=== PATIENT | female | born 1955 | race African-American/Black ===

== ENCOUNTER 2016-07-18 11:05 | Inpatient (IN) | payer OTHER ==
[2016-07-18 12:22] VITALS: BMI 19.7
--- NOTE | 2016-07-18 16:21 | HP ---
Admission ROS [facility] Chief Complaint: I WANT TO GO TO REHAB Allergies/Adverse Reactions: Allergies Allergy/AdvReac Type Severity Reaction Status Date / Time No Known Allergies Allergy Verified 07/18/16 13:37 History of Present Illness: 60 YEARS OLD FEMALE WITH LONG HISTORY OF ALCOHOL COCAINE DEPENDENCE, HAS HIV, HEPATITIS C TREATED, HYPERTENSION LEFT GROIN HERNIA X 5 YEARS, IS ADMITTED TO REHAB Exam Limitations: No Limitations - Ebola screening Have you traveled outside of the country in the last 21 days: No Have you had contact with anyone from an Ebola affected area: No Have you been sick,other than usual withdrawal symptoms: No Do you have a fever: No - Review of Systems Constitutional: Loss of Appetite EENT: reports: Dental Problems (DENTURE), Other (EYE GLASSES) Respiratory: reports: No Symptoms reported Cardiac: reports: No Symptoms Reported GI: reports: Poor Appetite : reports: No Symptoms Reported Musculoskeletal: reports: No Symptoms Reported Integumentary: reports: No Symptoms Reported Neuro: reports: Numbness (LEFT LEG RELATED TO HIV) Endocrine: reports: No Symptoms Reported Hematology: reports: No Symptoms Reported Psychiatric: reports: Judgement Intact, Mood/Affect Appropiate, Orientated x3 Other Systems: Reviewed and Negative Patient History - Patient Medical History Hx Anemia: Yes (TAKES MVI W/ IRON) Hx Asthma: No Hx Chronic Obstructive Pulmonary Disease (COPD): No Hx Cancer: No Hx Cardiac Disorders: Yes (HCM) Hx Congestive Heart Failure: No Hx Hypertension: Yes Hx Hypercholesterolemia: No Hx Pacemaker: No HX Cerebrovascular Accident: No Hx Seizures: No Hx Dementia: No Hx Diabetes: No Hx Gastrointestinal Disorders: No Hx Liver Disease: No Hx Genitourinary Disorders: No Hx Sexually Transmitted Disorders: Yes (HIV + since 1996) Hx Renal Disease (ESRD): No Hx Thyroid Disease: No Hx Human Immunodeficiency Virus (HIV): Yes (1996,AIDS) Hx Hepatitis C: Yes (COMPLETED HARVONI [place]) Hx Depression: No Hx Suicide Attempt: No Hx Bipolar Disorder: No Hx Schizophrenia: No - Patient Surgical History Past Surgical History: No Hx Neurologic Surgery: No Hx Cataract Extraction: No Hx Cardiac Surgery: No Hx Lung Surgery: No Hx Breast Surgery: No Hx Breast Biopsy: No Hx Abdominal Surgery: No Hx Appendectomy: No Hx Cholecystectomy: No Hx Genitourinary Surgery: No Hx Section: No Hx Orthopedic Surgery: No Hx Hysterectomy: No - PPD History Previous Implant?: Yes Documented Results: Negative w/proof Implanted On Prior [facility] Admission?: Yes Date: 03/11/15 Results: 0 mm PPD to be Administered?: Yes - Reproductive History Patient is a Female of Child Bearing Age (11 -55 yrs old): No Last Menstrual Period: 10/19/03 Patient : No - Smoking Cessation Smoking history: Former smoker Have you smoked in the past 12 months: No Cigars Per Day: 0 Hx Chewing Tobacco Use: No Initiated information on smoking cessation: No - Substance & Tx. History Hx Alcohol Use: Yes Hx Substance Use: Yes Substance Use Type: Alcohol, Cocaine Hx Substance Use Treatment: Yes - Substances Abused Alcohol Route: Oral Frequency: Daily Amount used: 1/2 [id number] Age of first use: 15 Date of Last Use: 07/11/16 Family Disease History - Family Disease History Family Disease History: Other: Father ( ALCOHOL ), Mother (htn ), Brother (murmur ) Admission Physical Exam S - Vital Signs Vital Signs: Vital Signs - 24 hr 07/18/16 12:20 Temperature 97.9 F Pulse Rate 68 Respiratory 18 Rate Blood Pressure 111/71 - Physical General Appearance: Yes: No Apparent Distress, Appropriately Dressed, Thin HEENTM: Yes: Hearing grossly Normal, Normal ENT Inspection, Normocephalic, Normal Voice Respiratory: Yes: Chest Non-Tender, Lungs Clear, Normal Breath Sounds, No Respiratory Distress, No Accessory Muscle Use Neck: Yes: Supple, Trachea in good position Breast: Yes: Breasts Symetrical Cardiology: Yes: Regular Rhythm, Regular Rate, S1, S2 Abdominal: Yes: Non Tender, Soft Genitourinary: Yes: Within Normal Limits Back: Yes: Normal Inspection Musculoskeletal: Yes: full range of Motion, Gait Steady Extremities: Yes: Normal Inspection, Normal Range of Motion, Non-Tender Neurological: Yes: Fully Oriented, Alert, Motor Strength 5/5, Normal Mood/Affect , Normal Response Integumentary: Yes: Normal Color, Warm Lymphatic: Yes: Within Normal Limits - Diagnostic (1) AIDS (acquired immune deficiency syndrome) Current Visit: Yes Status: Acute Comment: SINCE 1996 (2) Alcohol dependence with uncomplicated withdrawal Current Visit: Yes Status: Acute (3) HTN (hypertension) Current Visit: Yes Status: Acute Qualifiers: Hypertension type: essential hypertension Qualified Code(s): I10 - Essential (primary) hypertension (4) Hepatitis C antibody test positive Current Visit: Yes Status: Resolved Comment: TREATED (5) Left inguinal hernia Current Visit: Yes Status: Chronic Comment: X 5 YEARS (6) Hypertrophic cardiomyopathy Current Visit: Yes Status: Chronic Comment: ASPIRIN (7) Anemia Current Visit: Yes Status: Acute Qualifiers: Anemia type: iron deficiency Comment: LAB PENDING (8) GERD (gastroesophageal reflux disease) Current Visit: Yes Status: Acute Qualifiers: Esophagitis presence: without esophagitis Qualified Code(s): K21.9 - Gastro-esophageal reflux disease without esophagitis (9) Weight loss Current Visit: Yes Status: Acute Cleared for Admission [facility] - Detox or Rehab S Level of Care: Observation Bed Detox Regimen/Protocol: Not Applicable Claeared for Rehab Admission: Yes [facility] Breath Alcohol Content Breath Alcohol Content: 0 Urine Pregancy Test - Result Urine Test Results: Negative- NO Line Present Urine Drug Screen - Results Drug Screen Negative: No Urine Drug Screen Results: ARIADNA-Cocaine
[2016-07-18] MEDS ORDERED: IBUPROFEN 400 MG TABLET (FP) PO PRN (16:29)
[2016-07-18] MEDS ORDERED: MAGNESIUM CITRATE 300 ML BOTTLE PO PRN (16:29)
[2016-07-18] MEDS ORDERED: MAGNESIUM HYDROX 2400MG/30ML ORAL SUSPENSION 30 ML CUP PO PRN (16:29)
[2016-07-18] MEDS ORDERED: P-EPHED 60MG/TRIPROLIDI 2.5MG TABLET PO PRN (16:29)
[2016-07-18] MEDS ORDERED: LOPERAMIDE HCL 2 MG CAPSULE PO PRN (16:29)
[2016-07-18] MEDS ORDERED: ACETAMINOPHEN 325 MG TABLET (FP) PO PRN (16:29)
[2016-07-18] MEDS: traZODone HCL 50 MG TABLET (FP) PO SCH (21:43)
[2016-07-18] MEDS: THIAMINE HCL 100 MG TABLET (FP) PO SCH (21:43)
[2016-07-18] MEDS: RANITIDINE HCL 150 MG TABLET (FP) PO SCH (21:44)
[2016-07-18] MEDS: NEVIRAPINE 200 MG TABLET PO SCH (21:45)
[2016-07-18] MEDS: CALCIUM 500MG/VIT-D 200 UNITS COMBO TABLET (FP) PO SCH (21:45)
[2016-07-18] MEDS: lamiVUDine/ZIDOVUDINE 150/300 1 COMBO TABLET PO SCH (21:45)
[2016-07-19] MEDS ORDERED: PT OWN MED DRAWER 7, Y5N ONE ×2 (09:00→20:42)
[2016-07-19] MEDS ORDERED: MULTIVIT WITH IRON MINERALS PO SCH (10:00)
[2016-07-19] MEDS: CALCIUM 500MG/VIT-D 200 UNITS COMBO TABLET (FP) PO SCH ×2 (10:10→21:32)
[2016-07-19] MEDS: ASPIRIN 81 MG CHEWABLE TABLETS PO SCH (10:10)
[2016-07-19] MEDS: METOPROLOL SUCCINATE 100 MG TAB.SR.24H (FP) PO SCH (10:11)
[2016-07-19] MEDS: valACYclovir HCL 500 MG TABLET (FP) PO SCH (10:11)
[2016-07-19] MEDS: RANITIDINE HCL 150 MG TABLET (FP) PO SCH ×2 (10:11→21:32)
[2016-07-19] MEDS: PRENATAL VITAMINS W/ FOLIC ACID TABLET (FP) PO SCH (10:12)
[2016-07-19] MEDS: NEVIRAPINE 200 MG TABLET PO SCH ×2 (10:12→21:33)
[2016-07-19] MEDS: MAG HYDROX/AL HYDROX/SIMETH 30 ML UNIT-DOSE CUP PO PRN (10:14)
[2016-07-19 10:31] LABS: MCH 34.3 pg (25.7-33.7); MCHC 32.5 g/dl (32.0-36.0); MEAN CELL VOLUME 105.5 fl (80-96); MEAN PLT VOLUME 9.6 fl (7.5-11.1); PLATELET COUNT 170 K/MM3 (134-434); RDW 13.7 % (11.6-15.6); WHITE BLOOD COUNT 5.4 K/mm3 (4.0-10.0)
[2016-07-19] MEDS: lamiVUDine/ZIDOVUDINE 150/300 1 COMBO TABLET PO SCH ×2 (10:45→21:33)
[2016-07-19] MEDS: MENTHOL/PHENOL 1 EACH UD MM PRN ×2 (11:07→21:47)
[2016-07-19 11:09] LABS: ALBUMIN 4.3 g/dl (3.4-5.0); BILIRUBIN,TOTAL 0.6 mg/dL (0.2-1.0); CALCIUM 9.6 mg/dL (8.5-10.1); CREATININE 1.2 mg/dL (0.55-1.02); TOT PROT 8.3 g/dl (6.4-8.2)
[2016-07-19 11:24] LABS: PLATELET COMMENT2 NO CLOTTING DETECTED; PLATELET ESTIMATE ADEQUATE (NORMAL)
[2016-07-19 11:25] LABS: ANISOCYTOSIS 2+
[2016-07-19] MEDS: IBUPROFEN 600 MG TABLET (FP) PO PRN (12:55)
--- NOTE | 2016-07-19 18:24 | EKG ---
Test Reason : Blood Pressure : / mmHG Vent. Rate : 063 BPM Atrial Rate : 063 BPM P-R Int : 206 ms QRS Dur : 156 ms QT Int : 500 ms P-R-T Axes : 058 027 006 degrees QTc Int : 511 ms NORMAL SINUS RHYTHM POSSIBLE LEFT ATRIAL ENLARGEMENT LEFT VENTRICULAR HYPERTROPHY WITH QRS WIDENING AND REPOLARIZATION ABNORMALITY ABNORMAL ECG NO PREVIOUS ECGS AVAILABLE Confirmed by WILSON JULIAN MD ([id number]) on 07/19/2016 6:24:39 PM Referred By: Tonya Jacob Confirmed By:WILSON JULIAN MD
[2016-07-19] MEDS: THIAMINE HCL 100 MG TABLET (FP) PO SCH (21:31)
[2016-07-19] MEDS: traZODone HCL 50 MG TABLET (FP) PO SCH (22:41)
[2016-07-20] MEDS: MAG HYDROX/AL HYDROX/SIMETH 30 ML UNIT-DOSE CUP PO PRN (01:46)
[2016-07-20] MEDS: guaiFENesin/D-METHORPHAN HB 10 ML UNIT-DOSE CUPS PO PRN ×2 (07:50→22:59)
[2016-07-20] MEDS: ASPIRIN 81 MG CHEWABLE TABLETS PO SCH (10:19)
[2016-07-20] MEDS: lamiVUDine/ZIDOVUDINE 150/300 1 COMBO TABLET PO SCH ×2 (10:20→21:30)
[2016-07-20] MEDS: RANITIDINE HCL 150 MG TABLET (FP) PO SCH ×2 (10:20→21:29)
[2016-07-20] MEDS: NEVIRAPINE 200 MG TABLET PO SCH ×2 (10:20→21:29)
[2016-07-20] MEDS: valACYclovir HCL 500 MG TABLET (FP) PO SCH (10:20)
[2016-07-20] MEDS: CALCIUM 500MG/VIT-D 200 UNITS COMBO TABLET (FP) PO SCH ×2 (10:20→21:30)
[2016-07-20] MEDS: PRENATAL VITAMINS W/ FOLIC ACID TABLET (FP) PO SCH (10:20)
[2016-07-20] MEDS: METOPROLOL SUCCINATE 100 MG TAB.SR.24H (FP) PO SCH (10:21)
[2016-07-20] MEDS: MENTHOL/PHENOL 1 EACH UD MM PRN (10:23)
[2016-07-20 10:54] LABS: URINE APPEARANCE CLEAR; URINE BILIRUBIN NEGATIVE (NEGATIVE); URINE COLOR YELLOW; URINE GLUCOSE (UA) NEGATIVE (NEGATIVE); URINE KETONE NEGATIVE (NEGATIVE); URINE NITRITE NEGATIVE (NEGATIVE); URINE PROTEIN NEGATIVE (NEGATIVE); URINE UROBILINOGEN NEGATIVE E.U./dl (0.2-1.0)
[2016-07-20 11:05] LABS: URINE BLOOD 2+ (NEGATIVE); URINE LEUK ESTERASE 3+ (NEGATIVE)
[2016-07-20 11:06] LABS: URINE RBC 3 /hpf (0-3); URINE WBC 20 /hpf (3-5)
[2016-07-20] MEDS ORDERED: PT OWN MED DRAWER 7, Y5N ONE (20:09)
[2016-07-20] MEDS: THIAMINE HCL 100 MG TABLET (FP) PO SCH (21:29)
[2016-07-20] MEDS: traZODone HCL 50 MG TABLET (FP) PO SCH (22:55)
[2016-07-21] MEDS ORDERED: PT OWN MED DRAWER 7, Y5N ONE ×3 (08:53→23:08)
--- NOTE | 2016-07-21 10:13 | HP ---
Psychiatrist Admission - Data Date of interview: 07/21/16 Admission source: [facility] Identifying data: This is one of the multiple admissions to [address] [place] [address] [facility] for this 60 years old AA female mother of one vanessa, resides in supportive housing,on [employer] benefits. Medical History: Significant for HIV+,AIDS,Anemia,HTN,GERD,Hypertrophic cardiomyopathy,H/O L Ingvinal Hernia. Psychiatric History: Reports no psychiatric history except some sleeping difficulties,taking Trazodone once in a while with good response. Physical/Sexual Abuse/Trauma History: denies Vital Signs: Vital Signs - 24 hr 07/21/16 07/21/16 07/21/16 00:30 07:10 10:10 Temperature 97.1 F L Pulse Rate 54 L 68 Respiratory 16 18 Rate Blood Pressure 147/96 103/68 Allergies/Adverse Reactions: Allergies Allergy/AdvReac Type Severity Reaction Status Date / Time No Known Allergies Allergy Verified 07/18/16 13:37 Date of last physical exam: 07/18/16 Concur with the findings of this exam: Yes - Substance Abuse/Tx History Hx Alcohol Use: Yes (reports drinking since 12 yo ,3-6 packs daily) Hx Substance Use: Yes (smoking crack since 20 yo,$100-200 daily) Substance Use Type: Alcohol, Cocaine Hx Substance Use Treatment: Yes (longest absinence about 5 years) - Admission Criteria Previous failed treatment: Yes Poor recovery environment: Yes Comorbidities: Yes Lacks judgement: Yes Mental Status Exam - Mental Status Exam Alert and Oriented to: Time, Place, Person Cognitive Function: Grossly Intact Patient Appearance: Well Groomed Mood: Irritable Affect: Labile Patient Behavior: Restless, Impulsive Speech Pattern: Clear Voice Loudness: Normal Thought Process: Goal Oriented Thought Disorder: Not Present Hallucinations: Denies Suicidal Ideation: Denies Homicidal Ideation: Denies Insight/Judgement: Fair Sleep: Difficulty falling asleep Appetite: Fair Muscle strength/Tone: Normal Gait/Station: Normal Psychiatric Findings - Problem List ([place] 1, 2,3) (1) AIDS (acquired immune deficiency syndrome) Current Visit: Yes Status: Chronic Comment: SINCE 1996 (2) Alcohol dependence with uncomplicated withdrawal Current Visit: Yes Status: Chronic (3) Anemia Current Visit: Yes Status: Chronic Qualifiers: Anemia type: iron deficiency Comment: LAB PENDING (4) GERD (gastroesophageal reflux disease) Current Visit: Yes Status: Chronic Qualifiers: Esophagitis presence: without esophagitis Qualified Code(s): K21.9 - Gastro-esophageal reflux disease without esophagitis (5) HTN (hypertension) Current Visit: Yes Status: Chronic Qualifiers: Hypertension type: essential hypertension Qualified Code(s): I10 - Essential (primary) hypertension (6) Weight loss Current Visit: Yes Status: Chronic (7) Hypertrophic cardiomyopathy Current Visit: Yes Status: Chronic Comment: ASPIRIN (8) Left inguinal hernia Current Visit: Yes Status: Chronic Comment: X 5 YEARS - Initial Treatment Plan Initial Treatment Plan: Trazodone 50 mg po hs.Will monitor progress.
[2016-07-21] MEDS: ASPIRIN 81 MG CHEWABLE TABLETS PO SCH (10:22)
[2016-07-21] MEDS: valACYclovir HCL 500 MG TABLET (FP) PO SCH (10:22)
[2016-07-21] MEDS: NEVIRAPINE 200 MG TABLET PO SCH ×2 (10:22→21:32)
[2016-07-21] MEDS: lamiVUDine/ZIDOVUDINE 150/300 1 COMBO TABLET PO SCH ×2 (10:22→21:32)
[2016-07-21] MEDS: CALCIUM 500MG/VIT-D 200 UNITS COMBO TABLET (FP) PO SCH (10:22)
[2016-07-21] MEDS: PRENATAL VITAMINS W/ FOLIC ACID TABLET (FP) PO SCH (10:23)
[2016-07-21] MEDS: METOPROLOL SUCCINATE 100 MG TAB.SR.24H (FP) PO SCH (10:23)
[2016-07-21] MEDS: RANITIDINE HCL 150 MG TABLET (FP) PO SCH ×2 (10:23→21:31)
[2016-07-21] MEDS: guaiFENesin/D-METHORPHAN HB 10 ML UNIT-DOSE CUPS PO PRN (10:30)
[2016-07-21] MEDS ORDERED: NON-FORMULARY MED PO SCH (13:50)
[2016-07-21] MEDS ORDERED: METOPROLOL SUCCINATE 100 MG TAB.SR.24H (FP) PO SCH (14:07)
[2016-07-21] MEDS: MENTHOL/PHENOL 1 EACH UD MM PRN (15:11)
[2016-07-21] MEDS: THIAMINE HCL 100 MG TABLET (FP) PO SCH (21:31)
[2016-07-21] MEDS: traZODone HCL 50 MG TABLET (FP) PO SCH (21:31)
[2016-07-21] MEDS: CHOLECALCIFEROL PO SCH (21:32)
[2016-07-21] MEDS: CALCIUM PO SCH (21:32)
[2016-07-22] MEDS ORDERED: PT OWN MED DRAWER 7, Y5N ONE ×2 (08:45→22:46)
[2016-07-22] MEDS: MULTIVIT WITH IRON MINERALS PO SCH (10:12)
[2016-07-22] MEDS: valACYclovir HCL 1000 MG TABLET PO SCH (10:12)
[2016-07-22] MEDS: NEVIRAPINE 200 MG TABLET PO SCH ×2 (10:13→21:43)
[2016-07-22] MEDS: FOLIC ACID 1 MG TABLET (FP) PO SCH (10:13)
[2016-07-22] MEDS: METOPROLOL SUCCINATE 200 MG TAB.SR.24H PO SCH (10:13)
[2016-07-22] MEDS: CHOLECALCIFEROL PO SCH ×2 (10:13→21:43)
[2016-07-22] MEDS: CALCIUM PO SCH ×2 (10:13→21:43)
[2016-07-22] MEDS: lamiVUDine/ZIDOVUDINE 150/300 1 COMBO TABLET PO SCH ×2 (10:13→21:43)
[2016-07-22] MEDS: ASPIRIN COATED 81 MG TABLET.EC PO SCH (10:13)
[2016-07-22] MEDS: guaiFENesin/D-METHORPHAN HB 10 ML UNIT-DOSE CUPS PO PRN ×2 (10:14→22:43)
[2016-07-22] MEDS: RANITIDINE HCL 150 MG TABLET (FP) PO SCH ×2 (10:27→21:42)
[2016-07-22] MEDS: IBUPROFEN 600 MG TABLET (FP) PO PRN (16:48)
[2016-07-22] MEDS: traZODone HCL 50 MG TABLET (FP) PO SCH (21:42)
[2016-07-22] MEDS: THIAMINE HCL 100 MG TABLET (FP) PO SCH (21:42)
[2016-07-23] MEDS ORDERED: valACYclovir HCL 500 MG TABLET (FP) ONE (09:04)
[2016-07-23] MEDS ORDERED: PT OWN MED DRAWER 7, Y5N ONE (09:07)
[2016-07-23] MEDS: RANITIDINE HCL 150 MG TABLET (FP) PO SCH ×2 (10:18→21:37)
[2016-07-23] MEDS: FOLIC ACID 1 MG TABLET (FP) PO SCH (10:18)
[2016-07-23] MEDS: ASPIRIN COATED 81 MG TABLET.EC PO SCH (10:19)
[2016-07-23] MEDS: lamiVUDine/ZIDOVUDINE 150/300 1 COMBO TABLET PO SCH ×2 (10:20→21:38)
[2016-07-23] MEDS: METOPROLOL SUCCINATE 200 MG TAB.SR.24H PO SCH (10:20)
[2016-07-23] MEDS: MULTIVIT WITH IRON MINERALS PO SCH (10:20)
[2016-07-23] MEDS: NEVIRAPINE 200 MG TABLET PO SCH ×2 (10:20→21:37)
[2016-07-23] MEDS: valACYclovir HCL 1000 MG TABLET PO SCH (10:20)
[2016-07-23] MEDS: CHOLECALCIFEROL PO SCH ×2 (10:20→21:38)
[2016-07-23] MEDS: CALCIUM PO SCH ×2 (10:20→21:38)
[2016-07-23] MEDS: IBUPROFEN 600 MG TABLET (FP) PO PRN (15:23)
[2016-07-23] MEDS: THIAMINE HCL 100 MG TABLET (FP) PO SCH (21:37)
[2016-07-23] MEDS: traZODone HCL 50 MG TABLET (FP) PO SCH (21:38)
[2016-07-24] MEDS: MENTHOL/PHENOL 1 EACH UD MM PRN (02:07)
[2016-07-24] MEDS: guaiFENesin/D-METHORPHAN HB 10 ML UNIT-DOSE CUPS PO PRN ×2 (02:08→10:15)
[2016-07-24] MEDS: valACYclovir HCL 1000 MG TABLET PO SCH (10:13)
[2016-07-24] MEDS: CHOLECALCIFEROL PO SCH ×2 (10:13→21:38)
[2016-07-24] MEDS: RANITIDINE HCL 150 MG TABLET (FP) PO SCH ×2 (10:13→21:37)
[2016-07-24] MEDS: FOLIC ACID 1 MG TABLET (FP) PO SCH (10:13)
[2016-07-24] MEDS: lamiVUDine/ZIDOVUDINE 150/300 1 COMBO TABLET PO SCH ×2 (10:13→21:38)
[2016-07-24] MEDS: ASPIRIN COATED 81 MG TABLET.EC PO SCH (10:13)
[2016-07-24] MEDS: NEVIRAPINE 200 MG TABLET PO SCH ×2 (10:13→21:38)
[2016-07-24] MEDS: CALCIUM PO SCH ×2 (10:13→21:38)
[2016-07-24] MEDS: MULTIVIT WITH IRON MINERALS PO SCH (10:13)
[2016-07-24] MEDS: METOPROLOL SUCCINATE 200 MG TAB.SR.24H PO SCH (10:13)
[2016-07-24] MEDS ORDERED: PT OWN MED DRAWER 7, Y5N ONE ×2 (10:15→19:38)
[2016-07-24] MEDS: IBUPROFEN 600 MG TABLET (FP) PO PRN (16:26)
[2016-07-24] MEDS: THIAMINE HCL 100 MG TABLET (FP) PO SCH (21:37)
[2016-07-24] MEDS: traZODone HCL 50 MG TABLET (FP) PO SCH (21:37)
[2016-07-25] MEDS: RANITIDINE HCL 150 MG TABLET (FP) PO SCH ×2 (10:25→22:15)
[2016-07-25] MEDS: ASPIRIN COATED 81 MG TABLET.EC PO SCH (10:25)
[2016-07-25] MEDS: CHOLECALCIFEROL PO SCH ×2 (10:25→22:13)
[2016-07-25] MEDS: MULTIVIT WITH IRON MINERALS PO SCH (10:25)
[2016-07-25] MEDS: FOLIC ACID 1 MG TABLET (FP) PO SCH (10:25)
[2016-07-25] MEDS: valACYclovir HCL 1000 MG TABLET PO SCH (10:25)
[2016-07-25] MEDS: lamiVUDine/ZIDOVUDINE 150/300 1 COMBO TABLET PO SCH ×2 (10:25→22:14)
[2016-07-25] MEDS: CALCIUM PO SCH ×2 (10:25→22:13)
[2016-07-25] MEDS: NEVIRAPINE 200 MG TABLET PO SCH ×2 (10:26→22:13)
[2016-07-25] MEDS: METOPROLOL SUCCINATE 200 MG TAB.SR.24H PO SCH (10:26)
--- NOTE | 2016-07-25 14:36 | PN ---
[facility] Progress Note Note: coughing ,dry coughing,lung clear,vaginal discharge,will give monistat vaginal cream
[2016-07-25] MEDS ORDERED: PT OWN MED DRAWER 7, Y5N ONE ×3 (19:37→23:27)
[2016-07-25] MEDS: THIAMINE HCL 100 MG TABLET (FP) PO SCH (22:15)
[2016-07-25] MEDS: traZODone HCL 50 MG TABLET (FP) PO SCH (23:24)
[2016-07-25] MEDS: MICONAZOLE NITRATE 2% VAGINAL CREAM 45 GM TUBE VG SCH (23:25)
[2016-07-25] MEDS: diphenhydrAMINE HCL 50 MG CAPSULE PO PRN (23:42)
[2016-07-26] MEDS ORDERED: valACYclovir HCL 500 MG TABLET (FP) ONE (08:57)
[2016-07-26] MEDS ORDERED: PT OWN MED DRAWER 7, Y5N ONE ×4 (08:59→21:57)
[2016-07-26] MEDS ORDERED: METOPROLOL SUCCINATE 100 MG TAB.SR.24H (FP) PO ONE (09:16)
[2016-07-26] MEDS: METOPROLOL SUCCINATE 200 MG TAB.SR.24H PO SCH (10:22)
[2016-07-26] MEDS: lamiVUDine/ZIDOVUDINE 150/300 1 COMBO TABLET PO SCH ×2 (10:22→21:34)
[2016-07-26] MEDS: MULTIVIT WITH IRON MINERALS PO SCH (10:22)
[2016-07-26] MEDS: ASPIRIN COATED 81 MG TABLET.EC PO SCH (10:22)
[2016-07-26] MEDS: NEVIRAPINE 200 MG TABLET PO SCH ×2 (10:22→21:34)
[2016-07-26] MEDS: valACYclovir HCL 1000 MG TABLET PO SCH (10:22)
[2016-07-26] MEDS: RANITIDINE HCL 150 MG TABLET (FP) PO SCH ×2 (10:25→21:34)
[2016-07-26] MEDS: FOLIC ACID 1 MG TABLET (FP) PO SCH (10:25)
[2016-07-26] MEDS: CALCIUM PO SCH ×2 (10:26→21:34)
[2016-07-26] MEDS: CHOLECALCIFEROL PO SCH ×2 (10:26→21:34)
[2016-07-26] MEDS: MICONAZOLE NITRATE 2% VAGINAL CREAM 45 GM TUBE VG SCH (21:33)
[2016-07-26] MEDS: THIAMINE HCL 100 MG TABLET (FP) PO SCH (21:33)
[2016-07-26] MEDS: traZODone HCL 50 MG TABLET (FP) PO SCH (21:33)
[2016-07-26] MEDS: guaiFENesin/D-METHORPHAN HB 10 ML UNIT-DOSE CUPS PO PRN (23:02)
[2016-07-27] MEDS: diphenhydrAMINE HCL 50 MG CAPSULE PO PRN ×2 (00:26→22:55)
[2016-07-27] MEDS ORDERED: PT OWN MED DRAWER 7, Y5N ONE ×3 (08:36→23:49)
[2016-07-27] MEDS: valACYclovir HCL 1000 MG TABLET PO SCH (09:51)
[2016-07-27] MEDS: METOPROLOL SUCCINATE 200 MG TAB.SR.24H PO SCH (09:51)
[2016-07-27] MEDS: lamiVUDine/ZIDOVUDINE 150/300 1 COMBO TABLET PO SCH ×2 (09:51→21:43)
[2016-07-27] MEDS: ASPIRIN COATED 81 MG TABLET.EC PO SCH (09:51)
[2016-07-27] MEDS: NEVIRAPINE 200 MG TABLET PO SCH ×2 (09:51→21:42)
[2016-07-27] MEDS: MULTIVIT WITH IRON MINERALS PO SCH (09:52)
[2016-07-27] MEDS: RANITIDINE HCL 150 MG TABLET (FP) PO SCH ×2 (09:52→21:42)
[2016-07-27] MEDS: FOLIC ACID 1 MG TABLET (FP) PO SCH (09:52)
[2016-07-27] MEDS: CALCIUM PO SCH ×2 (09:53→21:42)
[2016-07-27] MEDS: CHOLECALCIFEROL PO SCH ×2 (09:53→21:42)
[2016-07-27] MEDS: THIAMINE HCL 100 MG TABLET (FP) PO SCH (21:42)
[2016-07-27] MEDS: MICONAZOLE NITRATE 2% VAGINAL CREAM 45 GM TUBE VG SCH (21:43)
[2016-07-27] MEDS: traZODone HCL 50 MG TABLET (FP) PO SCH (22:55)
[2016-07-28] MEDS: MULTIVIT WITH IRON MINERALS PO SCH (10:31)
[2016-07-28] MEDS: METOPROLOL SUCCINATE 200 MG TAB.SR.24H PO SCH (10:31)
[2016-07-28] MEDS: RANITIDINE HCL 150 MG TABLET (FP) PO SCH ×2 (10:31→22:44)
[2016-07-28] MEDS: FOLIC ACID 1 MG TABLET (FP) PO SCH (10:31)
[2016-07-28] MEDS: lamiVUDine/ZIDOVUDINE 150/300 1 COMBO TABLET PO SCH ×2 (10:31→21:51)
[2016-07-28] MEDS: NEVIRAPINE 200 MG TABLET PO SCH ×2 (10:31→22:44)
[2016-07-28] MEDS: ASPIRIN COATED 81 MG TABLET.EC PO SCH (10:31)
[2016-07-28] MEDS: valACYclovir HCL 1000 MG TABLET PO SCH (10:31)
[2016-07-28] MEDS: CALCIUM PO SCH ×2 (10:35→21:52)
[2016-07-28] MEDS: CHOLECALCIFEROL PO SCH ×2 (10:35→21:52)
[2016-07-28] MEDS ORDERED: PT OWN MED DRAWER 7, Y5N ONE (10:35)
[2016-07-28] MEDS: IBUPROFEN 600 MG TABLET (FP) PO PRN (14:56)
[2016-07-28] MEDS: traZODone HCL 50 MG TABLET (FP) PO SCH (21:51)
[2016-07-28] MEDS: MICONAZOLE NITRATE 2% VAGINAL CREAM 45 GM TUBE VG SCH (21:52)
[2016-07-28] MEDS: diphenhydrAMINE HCL 50 MG CAPSULE PO PRN (22:43)
[2016-07-28] MEDS: THIAMINE HCL 100 MG TABLET (FP) PO SCH (22:44)
[2016-07-29] MEDS: FOLIC ACID 1 MG TABLET (FP) PO SCH (10:32)
[2016-07-29] MEDS: RANITIDINE HCL 150 MG TABLET (FP) PO SCH ×2 (10:32→21:49)
[2016-07-29] MEDS: CHOLECALCIFEROL PO SCH ×2 (10:33→21:49)
[2016-07-29] MEDS: ASPIRIN COATED 81 MG TABLET.EC PO SCH (10:33)
[2016-07-29] MEDS: METOPROLOL SUCCINATE 200 MG TAB.SR.24H PO SCH (10:33)
[2016-07-29] MEDS: CALCIUM PO SCH ×2 (10:33→21:49)
[2016-07-29] MEDS: NEVIRAPINE 200 MG TABLET PO SCH ×2 (10:33→21:48)
[2016-07-29] MEDS: MULTIVIT WITH IRON MINERALS PO SCH (10:33)
[2016-07-29] MEDS: lamiVUDine/ZIDOVUDINE 150/300 1 COMBO TABLET PO SCH ×2 (10:33→21:48)
[2016-07-29] MEDS ORDERED: PT OWN MED DRAWER 7, Y5N ONE ×2 (10:48→20:12)
[2016-07-29] MEDS: HYDROCORTISONE 1% TOPICAL CREAM 30 GM TUBE TP SCH ×2 (17:41→21:49)
[2016-07-29] MEDS: MICONAZOLE NITRATE 2% VAGINAL CREAM 45 GM TUBE VG SCH (21:48)
[2016-07-29] MEDS: traZODone HCL 50 MG TABLET (FP) PO SCH (21:49)
[2016-07-29] MEDS: diphenhydrAMINE HCL 50 MG CAPSULE PO PRN (22:36)
[2016-07-30] MEDS ORDERED: PT OWN MED DRAWER 7, Y5N ONE ×2 (09:06→22:04)
[2016-07-30] MEDS: RANITIDINE HCL 150 MG TABLET (FP) PO SCH ×2 (10:37→22:05)
[2016-07-30] MEDS: HYDROCORTISONE 1% TOPICAL CREAM 30 GM TUBE TP SCH ×4 (10:37→22:06)
[2016-07-30] MEDS: MULTIVIT WITH IRON MINERALS PO SCH (10:37)
[2016-07-30] MEDS: METOPROLOL SUCCINATE 200 MG TAB.SR.24H PO SCH (10:37)
[2016-07-30] MEDS: ASPIRIN COATED 81 MG TABLET.EC PO SCH (10:37)
[2016-07-30] MEDS: CALCIUM PO SCH ×2 (10:37→22:02)
[2016-07-30] MEDS: CHOLECALCIFEROL PO SCH ×2 (10:37→22:02)
[2016-07-30] MEDS: FOLIC ACID 1 MG TABLET (FP) PO SCH (10:37)
[2016-07-30] MEDS: NEVIRAPINE 200 MG TABLET PO SCH ×2 (10:37→22:02)
[2016-07-30] MEDS: lamiVUDine/ZIDOVUDINE 150/300 1 COMBO TABLET PO SCH ×2 (10:37→22:06)
[2016-07-30] MEDS: MICONAZOLE NITRATE 2% VAGINAL CREAM 45 GM TUBE VG SCH (22:03)
[2016-07-30] MEDS: traZODone HCL 50 MG TABLET (FP) PO SCH (22:05)
[2016-07-30] MEDS: diphenhydrAMINE HCL 50 MG CAPSULE PO PRN (22:05)
[2016-07-31] MEDS: RANITIDINE HCL 150 MG TABLET (FP) PO SCH ×2 (10:50→21:56)
[2016-07-31] MEDS: lamiVUDine/ZIDOVUDINE 150/300 1 COMBO TABLET PO SCH ×2 (10:50→21:58)
[2016-07-31] MEDS: ASPIRIN COATED 81 MG TABLET.EC PO SCH (10:50)
[2016-07-31] MEDS: HYDROCORTISONE 1% TOPICAL CREAM 30 GM TUBE TP SCH ×4 (10:50→21:58)
[2016-07-31] MEDS: FOLIC ACID 1 MG TABLET (FP) PO SCH (10:50)
[2016-07-31] MEDS: CHOLECALCIFEROL PO SCH ×2 (10:51→21:56)
[2016-07-31] MEDS: METOPROLOL SUCCINATE 200 MG TAB.SR.24H PO SCH (10:51)
[2016-07-31] MEDS: NEVIRAPINE 200 MG TABLET PO SCH ×2 (10:51→21:56)
[2016-07-31] MEDS: MULTIVIT WITH IRON MINERALS PO SCH (10:51)
[2016-07-31] MEDS: CALCIUM PO SCH ×2 (10:51→21:56)
[2016-07-31] MEDS: MAG HYDROX/AL HYDROX/SIMETH 30 ML UNIT-DOSE CUP PO PRN (16:59)
[2016-07-31] MEDS: diphenhydrAMINE HCL 50 MG CAPSULE PO PRN (21:55)
[2016-07-31] MEDS: traZODone HCL 50 MG TABLET (FP) PO SCH (21:56)
[2016-07-31] MEDS: MICONAZOLE NITRATE 2% VAGINAL CREAM 45 GM TUBE VG SCH (21:57)
[2016-08-01] MEDS ORDERED: PT OWN MED DRAWER 7, Y5N ONE (08:44)
[2016-08-01] MEDS: FOLIC ACID 1 MG TABLET (FP) PO SCH (10:46)
[2016-08-01] MEDS: ASPIRIN COATED 81 MG TABLET.EC PO SCH (10:46)
[2016-08-01] MEDS: RANITIDINE HCL 150 MG TABLET (FP) PO SCH ×2 (10:46→21:52)
[2016-08-01] MEDS: MULTIVIT WITH IRON MINERALS PO SCH (10:46)
[2016-08-01] MEDS: NEVIRAPINE 200 MG TABLET PO SCH ×2 (10:46→21:54)
[2016-08-01] MEDS: lamiVUDine/ZIDOVUDINE 150/300 1 COMBO TABLET PO SCH ×2 (10:46→21:53)
[2016-08-01] MEDS: METOPROLOL SUCCINATE 200 MG TAB.SR.24H PO SCH (10:47)
[2016-08-01] MEDS: CALCIUM PO SCH ×2 (10:48→21:54)
[2016-08-01] MEDS: CHOLECALCIFEROL PO SCH ×2 (10:48→21:54)
[2016-08-01] MEDS: HYDROCORTISONE 1% TOPICAL CREAM 30 GM TUBE TP SCH ×4 (10:49→21:54)
[2016-08-01] MEDS: traZODone HCL 50 MG TABLET (FP) PO SCH (21:52)
[2016-08-01] MEDS: diphenhydrAMINE HCL 50 MG CAPSULE PO PRN (21:53)
[2016-08-02] MEDS ORDERED: PT OWN MED DRAWER 7, Y5N ONE ×3 (09:13→20:04)
[2016-08-02] MEDS: ASPIRIN COATED 81 MG TABLET.EC PO SCH (10:35)
[2016-08-02] MEDS: lamiVUDine/ZIDOVUDINE 150/300 1 COMBO TABLET PO SCH ×2 (10:35→21:43)
[2016-08-02] MEDS: CHOLECALCIFEROL PO SCH ×2 (10:35→21:43)
[2016-08-02] MEDS: CALCIUM PO SCH ×2 (10:35→21:43)
[2016-08-02] MEDS: FOLIC ACID 1 MG TABLET (FP) PO SCH (10:35)
[2016-08-02] MEDS: NEVIRAPINE 200 MG TABLET PO SCH ×2 (10:35→21:43)
[2016-08-02] MEDS: METOPROLOL SUCCINATE 200 MG TAB.SR.24H PO SCH (10:35)
[2016-08-02] MEDS: RANITIDINE HCL 150 MG TABLET (FP) PO SCH ×2 (10:35→21:43)
[2016-08-02] MEDS: MULTIVIT WITH IRON MINERALS PO SCH (10:35)
[2016-08-02] MEDS: HYDROCORTISONE 1% TOPICAL CREAM 30 GM TUBE TP SCH ×4 (10:36→21:45)
[2016-08-02] MEDS: traZODone HCL 50 MG TABLET (FP) PO SCH (21:43)
[2016-08-02] MEDS: diphenhydrAMINE HCL 50 MG CAPSULE PO PRN (21:44)
[2016-08-03] MEDS: MULTIVIT WITH IRON MINERALS PO SCH (10:20)
[2016-08-03] MEDS: CALCIUM PO SCH ×2 (10:20→21:48)
[2016-08-03] MEDS: CHOLECALCIFEROL PO SCH ×2 (10:20→21:48)
[2016-08-03] MEDS: METOPROLOL SUCCINATE 200 MG TAB.SR.24H PO SCH (10:21)
[2016-08-03] MEDS: lamiVUDine/ZIDOVUDINE 150/300 1 COMBO TABLET PO SCH ×2 (10:21→21:48)
[2016-08-03] MEDS: FOLIC ACID 1 MG TABLET (FP) PO SCH (10:21)
[2016-08-03] MEDS: NEVIRAPINE 200 MG TABLET PO SCH ×2 (10:21→21:48)
[2016-08-03] MEDS: RANITIDINE HCL 150 MG TABLET (FP) PO SCH ×2 (10:21→21:46)
[2016-08-03] MEDS: ASPIRIN COATED 81 MG TABLET.EC PO SCH (10:21)
[2016-08-03] MEDS: HYDROCORTISONE 1% TOPICAL CREAM 30 GM TUBE TP SCH ×4 (10:22→21:48)
[2016-08-03] MEDS: diphenhydrAMINE HCL 50 MG CAPSULE PO PRN (21:47)
[2016-08-03] MEDS: traZODone HCL 50 MG TABLET (FP) PO SCH (21:47)
[2016-08-04] MEDS ORDERED: PT OWN MED DRAWER 7, Y5N ONE ×3 (08:50→20:26)
[2016-08-04] MEDS: MULTIVIT WITH IRON MINERALS PO SCH (10:44)
[2016-08-04] MEDS: NEVIRAPINE 200 MG TABLET PO SCH ×2 (10:44→21:38)
[2016-08-04] MEDS: FOLIC ACID 1 MG TABLET (FP) PO SCH (10:44)
[2016-08-04] MEDS: HYDROCORTISONE 1% TOPICAL CREAM 30 GM TUBE TP SCH ×4 (10:44→21:38)
[2016-08-04] MEDS: RANITIDINE HCL 150 MG TABLET (FP) PO SCH ×2 (10:44→21:37)
[2016-08-04] MEDS: METOPROLOL SUCCINATE 200 MG TAB.SR.24H PO SCH (10:44)
[2016-08-04] MEDS: lamiVUDine/ZIDOVUDINE 150/300 1 COMBO TABLET PO SCH ×2 (10:44→21:38)
[2016-08-04] MEDS: ASPIRIN COATED 81 MG TABLET.EC PO SCH (10:44)
[2016-08-04] MEDS: CHOLECALCIFEROL PO SCH ×2 (10:47→21:38)
[2016-08-04] MEDS: CALCIUM PO SCH ×2 (10:47→21:38)
--- NOTE | 2016-08-04 11:50 | PN ---
[facility] Progress Note Note: Vaginal d/c with fishy odor Bacterial vaginosis P : flagyl bid
[2016-08-04] MEDS ORDERED: valACYclovir HCL 500 MG TABLET (FP) PO SCH (13:50)
[2016-08-04] MEDS: valACYclovir HCL 1000 MG TABLET PO SCH (14:54)
[2016-08-04] MEDS: metroNIDAZOLE 250 MG TABLET PO SCH ×2 (14:54→21:38)
[2016-08-04] MEDS: IBUPROFEN 600 MG TABLET (FP) PO PRN (16:30)
[2016-08-04] MEDS: traZODone HCL 50 MG TABLET (FP) PO SCH (21:37)
[2016-08-04] MEDS: diphenhydrAMINE HCL 50 MG CAPSULE PO PRN (21:39)
[2016-08-05] MEDS ORDERED: PT OWN MED DRAWER 7, Y5N ONE ×6 (08:25→19:25)
[2016-08-05] MEDS: metroNIDAZOLE 250 MG TABLET PO SCH ×2 (10:27→21:25)
[2016-08-05] MEDS: RANITIDINE HCL 150 MG TABLET (FP) PO SCH ×2 (10:27→21:25)
[2016-08-05] MEDS: ASPIRIN COATED 81 MG TABLET.EC PO SCH (10:27)
[2016-08-05] MEDS: FOLIC ACID 1 MG TABLET (FP) PO SCH (10:27)
[2016-08-05] MEDS: MULTIVIT WITH IRON MINERALS PO SCH (10:29)
[2016-08-05] MEDS: CALCIUM PO SCH ×2 (11:11→21:26)
[2016-08-05] MEDS: CHOLECALCIFEROL PO SCH ×2 (11:11→21:26)
[2016-08-05] MEDS: lamiVUDine/ZIDOVUDINE 150/300 1 COMBO TABLET PO SCH ×2 (11:11→21:25)
[2016-08-05] MEDS: valACYclovir HCL 1000 MG TABLET PO SCH ×3 (11:11→11:13)
[2016-08-05] MEDS: METOPROLOL SUCCINATE 200 MG TAB.SR.24H PO SCH (11:11)
[2016-08-05] MEDS: HYDROCORTISONE 1% TOPICAL CREAM 30 GM TUBE TP SCH ×4 (11:12→21:26)
[2016-08-05] MEDS: NEVIRAPINE 200 MG TABLET PO SCH ×2 (11:13→21:26)
[2016-08-05] MEDS: traZODone HCL 50 MG TABLET (FP) PO SCH (21:25)
[2016-08-05] MEDS: diphenhydrAMINE HCL 50 MG CAPSULE PO PRN (21:27)
[2016-08-06] MEDS ORDERED: PT OWN MED DRAWER 7, Y5N ONE ×5 (07:31→21:15)
[2016-08-06] MEDS: metroNIDAZOLE 250 MG TABLET PO SCH ×2 (10:35→22:46)
[2016-08-06] MEDS: FOLIC ACID 1 MG TABLET (FP) PO SCH (10:35)
[2016-08-06] MEDS: RANITIDINE HCL 150 MG TABLET (FP) PO SCH ×2 (10:35→22:46)
[2016-08-06] MEDS: CHOLECALCIFEROL PO SCH ×2 (10:36→22:53)
[2016-08-06] MEDS: CALCIUM PO SCH ×2 (10:36→22:53)
[2016-08-06] MEDS: METOPROLOL SUCCINATE 200 MG TAB.SR.24H PO SCH (10:36)
[2016-08-06] MEDS: ASPIRIN COATED 81 MG TABLET.EC PO SCH (10:36)
[2016-08-06] MEDS: lamiVUDine/ZIDOVUDINE 150/300 1 COMBO TABLET PO SCH ×2 (10:36→22:53)
[2016-08-06] MEDS: valACYclovir HCL 1000 MG TABLET PO SCH (10:37)
[2016-08-06] MEDS: MULTIVIT WITH IRON MINERALS PO SCH (10:37)
[2016-08-06] MEDS: HYDROCORTISONE 1% TOPICAL CREAM 30 GM TUBE TP SCH ×4 (10:37→22:53)
[2016-08-06] MEDS: NEVIRAPINE 200 MG TABLET PO SCH ×2 (10:37→22:49)
--- NOTE | 2016-08-06 14:58 | PN ---
[facility] Progress Note Note: C/O constipation P : Colace 100mg bid
[2016-08-06] MEDS: traZODone HCL 50 MG TABLET (FP) PO SCH (22:46)
[2016-08-06] MEDS: DOCUSATE SODIUM 100 MG CAPSULE (FP) PO SCH (22:47)
[2016-08-06] MEDS: diphenhydrAMINE HCL 50 MG CAPSULE PO PRN (22:51)
[2016-08-07] MEDS ORDERED: PT OWN MED DRAWER 7, Y5N ONE ×2 (08:33→21:47)
[2016-08-07] MEDS: METOPROLOL SUCCINATE 200 MG TAB.SR.24H PO SCH (10:49)
[2016-08-07] MEDS: CHOLECALCIFEROL PO SCH ×2 (10:49→21:48)
[2016-08-07] MEDS: lamiVUDine/ZIDOVUDINE 150/300 1 COMBO TABLET PO SCH ×2 (10:49→21:48)
[2016-08-07] MEDS: MULTIVIT WITH IRON MINERALS PO SCH (10:49)
[2016-08-07] MEDS: CALCIUM PO SCH ×2 (10:49→21:48)
[2016-08-07] MEDS: NEVIRAPINE 200 MG TABLET PO SCH ×2 (10:49→21:48)
[2016-08-07] MEDS: valACYclovir HCL 1000 MG TABLET PO SCH (10:49)
[2016-08-07] MEDS: RANITIDINE HCL 150 MG TABLET (FP) PO SCH ×2 (10:50→21:45)
[2016-08-07] MEDS: metroNIDAZOLE 250 MG TABLET PO SCH ×2 (10:50→21:45)
[2016-08-07] MEDS: HYDROCORTISONE 1% TOPICAL CREAM 30 GM TUBE TP SCH ×4 (10:50→21:48)
[2016-08-07] MEDS: FOLIC ACID 1 MG TABLET (FP) PO SCH (10:50)
[2016-08-07] MEDS: ASPIRIN COATED 81 MG TABLET.EC PO SCH (10:50)
[2016-08-07] MEDS: DOCUSATE SODIUM 100 MG CAPSULE (FP) PO SCH ×2 (10:50→21:45)
[2016-08-07] MEDS: traZODone HCL 50 MG TABLET (FP) PO SCH (21:45)
[2016-08-07] MEDS: diphenhydrAMINE HCL 50 MG CAPSULE PO PRN (21:46)
[2016-08-08] MEDS ORDERED: PT OWN MED DRAWER 7, Y5N ONE ×2 (08:34→19:53)
[2016-08-08] MEDS: FOLIC ACID 1 MG TABLET (FP) PO SCH (10:25)
[2016-08-08] MEDS: DOCUSATE SODIUM 100 MG CAPSULE (FP) PO SCH ×2 (10:25→21:58)
[2016-08-08] MEDS: metroNIDAZOLE 250 MG TABLET PO SCH ×2 (10:25→21:58)
[2016-08-08] MEDS: RANITIDINE HCL 150 MG TABLET (FP) PO SCH ×2 (10:25→21:58)
[2016-08-08] MEDS: METOPROLOL SUCCINATE 200 MG TAB.SR.24H PO SCH (10:26)
[2016-08-08] MEDS: MULTIVIT WITH IRON MINERALS PO SCH (10:26)
[2016-08-08] MEDS: ASPIRIN COATED 81 MG TABLET.EC PO SCH (10:26)
[2016-08-08] MEDS: CALCIUM PO SCH ×2 (10:26→22:53)
[2016-08-08] MEDS: lamiVUDine/ZIDOVUDINE 150/300 1 COMBO TABLET PO SCH ×2 (10:26→22:52)
[2016-08-08] MEDS: CHOLECALCIFEROL PO SCH ×2 (10:26→22:53)
[2016-08-08] MEDS: HYDROCORTISONE 1% TOPICAL CREAM 30 GM TUBE TP SCH ×4 (10:26→22:52)
[2016-08-08] MEDS: NEVIRAPINE 200 MG TABLET PO SCH ×2 (10:26→22:53)
[2016-08-08] MEDS: valACYclovir HCL 1000 MG TABLET PO SCH (10:26)
[2016-08-08] MEDS: diphenhydrAMINE HCL 50 MG CAPSULE PO PRN (21:58)
[2016-08-08] MEDS: traZODone HCL 50 MG TABLET (FP) PO SCH (21:58)
[2016-08-09] MEDS ORDERED: PT OWN MED DRAWER 7, Y5N ONE ×4 (09:01→21:56)
[2016-08-09] MEDS: metroNIDAZOLE 250 MG TABLET PO SCH ×2 (10:47→21:56)
[2016-08-09] MEDS: FOLIC ACID 1 MG TABLET (FP) PO SCH (10:47)
[2016-08-09] MEDS: MULTIVIT WITH IRON MINERALS PO SCH (10:47)
[2016-08-09] MEDS: DOCUSATE SODIUM 100 MG CAPSULE (FP) PO SCH ×2 (10:47→21:54)
[2016-08-09] MEDS: METOPROLOL SUCCINATE 200 MG TAB.SR.24H PO SCH (10:48)
[2016-08-09] MEDS: lamiVUDine/ZIDOVUDINE 150/300 1 COMBO TABLET PO SCH ×2 (10:48→21:55)
[2016-08-09] MEDS: CHOLECALCIFEROL PO SCH ×2 (10:48→21:54)
[2016-08-09] MEDS: ASPIRIN COATED 81 MG TABLET.EC PO SCH (10:48)
[2016-08-09] MEDS: valACYclovir HCL 1000 MG TABLET PO SCH (10:48)
[2016-08-09] MEDS: HYDROCORTISONE 1% TOPICAL CREAM 30 GM TUBE TP SCH ×4 (10:48→21:57)
[2016-08-09] MEDS: CALCIUM PO SCH ×2 (10:48→21:54)
[2016-08-09] MEDS: NEVIRAPINE 200 MG TABLET PO SCH ×2 (10:48→21:57)
[2016-08-09] MEDS: RANITIDINE HCL 150 MG TABLET (FP) PO SCH ×2 (10:49→21:54)
[2016-08-09] MEDS: diphenhydrAMINE HCL 50 MG CAPSULE PO PRN (21:54)
[2016-08-09] MEDS: traZODone HCL 50 MG TABLET (FP) PO SCH (21:54)
[2016-08-10] MEDS ORDERED: PT OWN MED DRAWER 7, Y5N ONE ×2 (08:41→11:20)
[2016-08-10] MEDS: lamiVUDine/ZIDOVUDINE 150/300 1 COMBO TABLET PO SCH ×2 (10:57→21:53)
[2016-08-10] MEDS: METOPROLOL SUCCINATE 200 MG TAB.SR.24H PO SCH (10:57)
[2016-08-10] MEDS: MULTIVIT WITH IRON MINERALS PO SCH (10:57)
[2016-08-10] MEDS: NEVIRAPINE 200 MG TABLET PO SCH ×2 (10:57→21:54)
[2016-08-10] MEDS: valACYclovir HCL 1000 MG TABLET PO SCH (10:57)
[2016-08-10] MEDS: ASPIRIN COATED 81 MG TABLET.EC PO SCH (10:57)
[2016-08-10] MEDS: CALCIUM PO SCH ×2 (10:58→21:54)
[2016-08-10] MEDS: FOLIC ACID 1 MG TABLET (FP) PO SCH (10:58)
[2016-08-10] MEDS: DOCUSATE SODIUM 100 MG CAPSULE (FP) PO SCH ×2 (10:58→21:52)
[2016-08-10] MEDS: CHOLECALCIFEROL PO SCH ×2 (10:58→21:54)
[2016-08-10] MEDS: RANITIDINE HCL 150 MG TABLET (FP) PO SCH ×2 (10:58→21:52)
[2016-08-10] MEDS: HYDROCORTISONE 1% TOPICAL CREAM 30 GM TUBE TP SCH ×4 (11:24→21:54)
[2016-08-10] MEDS: metroNIDAZOLE 250 MG TABLET PO SCH ×2 (11:24→21:53)
[2016-08-10] MEDS: traZODone HCL 50 MG TABLET (FP) PO SCH (21:52)
[2016-08-10] MEDS: diphenhydrAMINE HCL 50 MG CAPSULE PO PRN (21:53)
[2016-08-11] MEDS ORDERED: PT OWN MED DRAWER 7, Y5N ONE ×2 (08:52→19:35)
[2016-08-11] MEDS: metroNIDAZOLE 250 MG TABLET PO SCH (10:39)
[2016-08-11] MEDS: RANITIDINE HCL 150 MG TABLET (FP) PO SCH ×2 (10:39→21:49)
[2016-08-11] MEDS: FOLIC ACID 1 MG TABLET (FP) PO SCH (10:40)
[2016-08-11] MEDS: DOCUSATE SODIUM 100 MG CAPSULE (FP) PO SCH ×2 (10:40→21:50)
[2016-08-11] MEDS: CHOLECALCIFEROL PO SCH ×2 (10:40→21:50)
[2016-08-11] MEDS: METOPROLOL SUCCINATE 200 MG TAB.SR.24H PO SCH (10:40)
[2016-08-11] MEDS: NEVIRAPINE 200 MG TABLET PO SCH ×2 (10:40→21:50)
[2016-08-11] MEDS: ASPIRIN COATED 81 MG TABLET.EC PO SCH (10:40)
[2016-08-11] MEDS: valACYclovir HCL 1000 MG TABLET PO SCH (10:40)
[2016-08-11] MEDS: MULTIVIT WITH IRON MINERALS PO SCH (10:40)
[2016-08-11] MEDS: lamiVUDine/ZIDOVUDINE 150/300 1 COMBO TABLET PO SCH ×2 (10:40→21:50)
[2016-08-11] MEDS: CALCIUM PO SCH ×2 (10:40→21:50)
[2016-08-11] MEDS: HYDROCORTISONE 1% TOPICAL CREAM 30 GM TUBE TP SCH ×2 (10:41→14:05)
[2016-08-11] MEDS: traZODone HCL 50 MG TABLET (FP) PO SCH (21:49)
[2016-08-11] MEDS: diphenhydrAMINE HCL 50 MG CAPSULE PO PRN ×2 (21:50→23:46)
[2016-08-12] MEDS: DOCUSATE SODIUM 100 MG CAPSULE (FP) PO SCH ×2 (10:37→21:53)
[2016-08-12] MEDS: RANITIDINE HCL 150 MG TABLET (FP) PO SCH ×2 (10:37→21:53)
[2016-08-12] MEDS: CALCIUM PO SCH ×2 (10:38→21:55)
[2016-08-12] MEDS: METOPROLOL SUCCINATE 200 MG TAB.SR.24H PO SCH (10:38)
[2016-08-12] MEDS: ASPIRIN COATED 81 MG TABLET.EC PO SCH (10:38)
[2016-08-12] MEDS: CHOLECALCIFEROL PO SCH ×2 (10:38→21:55)
[2016-08-12] MEDS: FOLIC ACID 1 MG TABLET (FP) PO SCH (10:38)
[2016-08-12] MEDS: MULTIVIT WITH IRON MINERALS PO SCH (10:38)
[2016-08-12] MEDS: lamiVUDine/ZIDOVUDINE 150/300 1 COMBO TABLET PO SCH ×2 (10:38→21:55)
[2016-08-12] MEDS: NEVIRAPINE 200 MG TABLET PO SCH ×2 (10:38→21:55)
[2016-08-12] MEDS ORDERED: PT OWN MED DRAWER 7, Y5N ONE ×5 (10:49→20:40)
[2016-08-12] MEDS: traZODone HCL 50 MG TABLET (FP) PO SCH (21:53)
[2016-08-12] MEDS: diphenhydrAMINE HCL 50 MG CAPSULE PO PRN (21:54)
[2016-08-13] MEDS ORDERED: PT OWN MED DRAWER 7, Y5N ONE ×4 (08:18→11:31)
[2016-08-13] MEDS: CALCIUM PO SCH ×2 (11:00→21:54)
[2016-08-13] MEDS: lamiVUDine/ZIDOVUDINE 150/300 1 COMBO TABLET PO SCH ×2 (11:00→21:54)
[2016-08-13] MEDS: CHOLECALCIFEROL PO SCH ×2 (11:00→21:54)
[2016-08-13] MEDS: FOLIC ACID 1 MG TABLET (FP) PO SCH (11:01)
[2016-08-13] MEDS: DOCUSATE SODIUM 100 MG CAPSULE (FP) PO SCH ×2 (11:01→21:53)
[2016-08-13] MEDS: RANITIDINE HCL 150 MG TABLET (FP) PO SCH ×2 (11:01→21:53)
[2016-08-13] MEDS: ASPIRIN COATED 81 MG TABLET.EC PO SCH (11:02)
[2016-08-13] MEDS: MULTIVIT WITH IRON MINERALS PO SCH (11:03)
[2016-08-13] MEDS: NEVIRAPINE 200 MG TABLET PO SCH ×2 (11:05→21:54)
[2016-08-13] MEDS: METOPROLOL SUCCINATE 200 MG TAB.SR.24H PO SCH (11:06)
[2016-08-13] MEDS: traZODone HCL 50 MG TABLET (FP) PO SCH (21:53)
[2016-08-13] MEDS: diphenhydrAMINE HCL 50 MG CAPSULE PO PRN (21:54)
[2016-08-14] MEDS: MULTIVIT WITH IRON MINERALS PO SCH (10:50)
[2016-08-14] MEDS: CALCIUM PO SCH ×2 (10:50→21:39)
[2016-08-14] MEDS: lamiVUDine/ZIDOVUDINE 150/300 1 COMBO TABLET PO SCH ×2 (10:50→21:39)
[2016-08-14] MEDS: RANITIDINE HCL 150 MG TABLET (FP) PO SCH ×2 (10:50→21:38)
[2016-08-14] MEDS: FOLIC ACID 1 MG TABLET (FP) PO SCH (10:50)
[2016-08-14] MEDS: DOCUSATE SODIUM 100 MG CAPSULE (FP) PO SCH ×2 (10:50→21:38)
[2016-08-14] MEDS: CHOLECALCIFEROL PO SCH ×2 (10:50→21:39)
[2016-08-14] MEDS: ASPIRIN COATED 81 MG TABLET.EC PO SCH (10:51)
[2016-08-14] MEDS: METOPROLOL SUCCINATE 200 MG TAB.SR.24H PO SCH (10:51)
[2016-08-14] MEDS: NEVIRAPINE 200 MG TABLET PO SCH ×2 (10:51→21:39)
[2016-08-14] MEDS: traZODone HCL 50 MG TABLET (FP) PO SCH (21:38)
[2016-08-14] MEDS: diphenhydrAMINE HCL 50 MG CAPSULE PO PRN (21:39)
[2016-08-15 07:43] VITALS: TEMP 98
[2016-08-15] MEDS: FOLIC ACID 1 MG TABLET (FP) PO SCH (09:02)
[2016-08-15] MEDS: CHOLECALCIFEROL PO SCH (09:02)
[2016-08-15] MEDS: DOCUSATE SODIUM 100 MG CAPSULE (FP) PO SCH (09:02)
[2016-08-15] MEDS: RANITIDINE HCL 150 MG TABLET (FP) PO SCH (09:02)
[2016-08-15] MEDS: ASPIRIN COATED 81 MG TABLET.EC PO SCH (09:02)
[2016-08-15] MEDS: lamiVUDine/ZIDOVUDINE 150/300 1 COMBO TABLET PO SCH (09:02)
[2016-08-15] MEDS: MULTIVIT WITH IRON MINERALS PO SCH (09:02)
[2016-08-15] MEDS: METOPROLOL SUCCINATE 200 MG TAB.SR.24H PO SCH (09:02)
[2016-08-15] MEDS: NEVIRAPINE 200 MG TABLET PO SCH (09:02)
[2016-08-15] MEDS: CALCIUM PO SCH (09:02)
[2016-08-15 09:33] VITALS: BP 160/100; PULSE 57
--- NOTE | 2016-08-15 16:58 | PN ---
Psychiatric Progress Note Vital Signs: Vital Signs Period Temp Pulse Resp BP Sys/Cuevas Pulse Ox Last 24 Hr 98 F 47-57 16-18 128-160/86-100 Date of Session: 08/15/16 Chief Complaint:: Discharge visit HPI: Patient addressed Alcohol,Cocaine dependence comorbid with Substance induced sleep disorder.. ROS: Significant for HIV+,AIDS,Anemia,GERD, Current Side Effect: No Lab tests ordered: No Lab tests reviewed: Yes Provider note:: Patient completed this program today.She has met her treatment goals and will continue to address her issues on outpatient basis .Patient continues to find that Trazodone 50 mg po hs help to cope with sleeping difficulties.Script for 30 days provided. Supportive therapy provided., focusing on coping skills,support system utilization to maintain recovery. Patient is stable for discharge today. Total face to face time:: 30 Mental Status Exam - Mental Status Exam Alert and Oriented to: Time, Place, Person Cognitive Function: Grossly Intact Patient Appearance: Well Groomed Mood: Euthymic Affect: Mood Congruent Patient Behavior: Cooperative Speech Pattern: Clear Voice Loudness: Normal Thought Process: Goal Oriented Thought Disorder: Not Present Hallucinations: Denies Suicidal Ideation: Denies Homicidal Ideation: Denies Insight/Judgement: Fair Sleep: Fair Muscle strength/Tone: Normal Gait/Station: Normal Psychiatric Treatment Plan - Problem List (1) AIDS (acquired immune deficiency syndrome) Comment: SINCE 1996 (3) Anemia Qualifiers: Anemia type: iron deficiency Comment: LAB PENDING (4) GERD (gastroesophageal reflux disease) Qualifiers: Esophagitis presence: without esophagitis Qualified Code(s): K21.9 - Gastro-esophageal reflux disease without esophagitis (5) HTN (hypertension) Qualifiers: Hypertension type: essential hypertension Qualified Code(s): I10 - Essential (primary) hypertension (7) Hypertrophic cardiomyopathy Comment: ASPIRIN (8) Left inguinal hernia Comment: X 5 YEARS
== END 2016-08-15 10:00 | disposition home or self-care (01) | DRG 772 ==
LOC: YASAS 11:05 → Y3E 12:09
PROVIDERS: ADMIT Psychiatry & Neurology Psychiatry; ATTEND Psychiatry & Neurology Psychiatry
PROC: HZ42ZZZ Group Counseling for Substance Abuse Treatment, Cognitive-Behavioral (ICD-10-PCS; principal; 2016-08-15)
DX: F10.230 Alcohol dependence with withdrawal, uncomplicated (principal); B20 Human immunodeficiency virus [HIV] disease; I10 Essential (primary) hypertension; D50.8 Other iron deficiency anemias; K21.9 Gastro-esophageal reflux disease without esophagitis; I42.2 Other hypertrophic cardiomyopathy; K40.90 Unilateral inguinal hernia, without obstruction or gangrene, not specified as recurrent; R63.4 Abnormal weight loss; Z68.1 Body mass index [BMI] 19.9 or less, adult
CPT/HCPCS: 36415; 71010-TC; 80053; 81003; 81015; 85027; 86593; 93005; 93010

== ENCOUNTER 2017-03-13 11:53 | Inpatient (IN) | payer OTHER ==
[2017-03-13 12:06] VITALS: BMI 18.8
--- NOTE | 2017-03-13 15:53 | HP ---
Admission ROS [facility] Chief Complaint: requesting rehab for crack cocaien and alcohol use disorder Allergies/Adverse Reactions: Allergies Allergy/AdvReac Type Severity Reaction Status Date / Time No Known Allergies Allergy Verified 03/13/17 12:32 History of Present Illness: 61 yo f with h/o repeated admissions to rehab for crack cocaine and alcohol use disorder, deneis brannon when she does not drink no h/o seizures , no DTs. PMHX HIV+ /AIDS on meds, has them with her, HCV cleared with treatment, Hypertrophic cardiomyopathy, HTN on meds, no chest pain no palpitations, has SOBOE. has left inguinal hernia which causes discomfort on occasion Exam Limitations: No Limitations - Ebola screening Have you traveled outside of the country in the last 21 days: No Have you had contact with anyone from an Ebola affected area: No Have you been sick,other than usual withdrawal symptoms: No Do you have a fever: No - Review of Systems Constitutional: No Symptoms Reported EENT: reports: No Symptoms Reported Respiratory: reports: SOB with Exertion Cardiac: reports: No Symptoms Reported GI: reports: No Symptoms Reported : reports: No Symptoms Reported Musculoskeletal: reports: No Symptoms Reported Integumentary: reports: No Symptoms Reported Neuro: reports: No Symptoms reported Endocrine: reports: No Symptoms Reported Hematology: reports: No Symptoms Reported Psychiatric: reports: No Sypmtoms Reported Other Systems: Reviewed and Negative Patient History - Patient Medical History Hx Anemia: No Hx Asthma: No Hx Chronic Obstructive Pulmonary Disease (COPD): No Hx Cancer: No Hx Cardiac Disorders: Yes (hypertrophic cardiomyopathy) Hx Congestive Heart Failure: No Hx Hypertension: Yes (ON MEDICATION) Hx Hypercholesterolemia: No Hx Pacemaker: No HX Cerebrovascular Accident: No Hx Seizures: No Hx Dementia: No Hx Diabetes: No Hx Gastrointestinal Disorders: No Hx Liver Disease: No Hx Genitourinary Disorders: No Hx Sexually Transmitted Disorders: Yes (HIV INFECTION on HAART) Hx Renal Disease (ESRD): No Hx Thyroid Disease: No Hx Human Immunodeficiency Virus (HIV): Yes (1996,AIDS) Hx Hepatitis C: Yes (COMPLETED [place]VON[place]) Hx Depression: No Hx Suicide Attempt: No (no SI) Hx Bipolar Disorder: No Hx Schizophrenia: No - Patient Surgical History Past Surgical History: No Hx Neurologic Surgery: No Hx Cataract Extraction: No Hx Cardiac Surgery: No Hx Lung Surgery: No Hx Breast Surgery: No Hx Breast Biopsy: No Hx Abdominal Surgery: No Hx Appendectomy: No Hx Cholecystectomy: No Hx Genitourinary Surgery: No Hx Section: No Hx Orthopedic Surgery: No Hx Hysterectomy: No Anesthesia Reaction: No - PPD History Previous Implant?: Yes Documented Results: Negative w/o proof Date: 07/20/16 Results: 0 mm PPD to be Administered?: No - Reproductive History Patient is a Female of Child Bearing Age (11 -55 yrs old): No Last Menstrual Period: 10/19/03 Patient : No - Smoking Cessation Smoking history: Former smoker Have you smoked in the past 12 months: No Aproximately how many cigarettes per day: 6 Cigars Per Day: 0 Hx Chewing Tobacco Use: No Initiated information on smoking cessation: Yes 'Breaking Loose' booklet given: 03/13/17 - Substance & Tx. History Hx Alcohol Use: Yes Hx Substance Use: Yes Substance Use Type: Alcohol, Cocaine Hx Substance Use Treatment: Yes [place] [place] - Substances Abused Alcohol Route: Oral Frequency: 1-2 times per week Amount used: 3 12 OZ CANS Age of first use: 15 Date of Last Use: 03/13/17 Cocaine Route: Smoking Frequency: 3-6 times per week Amount used: $150 Age of first use: 19 Date of Last Use: 03/12/17 Family Disease History - Family Disease History Family Disease History: Other: Father ( ALCOHOL ), Mother (htn ), Brother (murmur ) Admission Physical Exam S - Vital Signs Vital Signs: Vital Signs - 24 hr 03/13/17 12:03 Temperature 97.8 F Pulse Rate 72 Respiratory 18 Rate Blood Pressure 124/82 - Physical General Appearance: Yes: Within Normal Limits, No Apparent Distress, Nourished, Appropriately Dressed, Thin HEENTM: Yes: Within Normal Limits, EOMI, Hearing grossly Normal, Normal ENT Inspection, Normocephalic, Normal Voice, NAHED, Pharynx Normal Respiratory: Yes: Within Normal Limits, Chest Non-Tender, Lungs Clear, Normal Breath Sounds, No Respiratory Distress, No Accessory Muscle Use Neck: Yes: Within Normal Limits, No masses,lesions,Nodules, Supple, Trachea in good position Breast: Yes: Breast Exam Deferred Cardiology: Yes: Within Normal Limits, Regular Rhythm, Regular Rate, S1, S2 Abdominal: Yes: Within Normal Limits, Normal Bowel Sounds, Non Tender, Flat, Soft Genitourinary: Yes: Within Normal Limits Back: Yes: Within Normal Limits Musculoskeletal: Yes: Within Normal Limits, full range of Motion, Gait Steady, Pelvis Stable Extremities: Yes: Within Normal Limits, Normal Capillary Refill, Normal Inspection, Normal Range of Motion, Non-Tender Neurological: Yes: underwriting technician II-XII NML intact, Fully Oriented, Alert, Motor Strength 5/5, Normal Response, Depressed Affect Integumentary: Yes: Within Normal Limits, Normal Color, Dry, Warm Lymphatic: Yes: Within Normal Limits - Diagnostic (1) AIDS (acquired immune deficiency syndrome) Current Visit: No Status: Chronic Comment: SINCE 1996 (2) Alcohol dependence Current Visit: No Status: Chronic Qualifiers: Substance use status: uncomplicated Qualified Code(s): F10.20 - Alcohol dependence, uncomplicated Comment: . (3) Anemia Current Visit: No Status: Chronic Qualifiers: Anemia type: iron deficiency Comment: LAB PENDING (4) Cardiomyopathy, hypertrophic Current Visit: No Status: Chronic (5) Cocaine dependence Current Visit: No Status: Chronic Comment: . (6) GERD (gastroesophageal reflux disease) Current Visit: No Status: Chronic Qualifiers: Esophagitis presence: without esophagitis Qualified Code(s): K21.9 - Gastro -esophageal reflux disease without esophagitis (7) HIV (human immunodeficiency virus infection) Current Visit: No Status: Chronic Comment: . (8) HTN (hypertension) Current Visit: No Status: Chronic Qualifiers: Hypertension type: essential hypertension Qualified Code(s): I10 - Essential (primary) hypertension (9) Hypertrophic cardiomyopathy Current Visit: No Status: Chronic Comment: ASPIRIN (10) Left inguinal hernia Current Visit: No Status: Chronic Comment: X 5 YEARS (11) Weight loss Current Visit: No Status: Chronic Cleared for Admission [facility] - Detox or Rehab Claeared for Rehab Admission: Yes [facility] Breath Alcohol Content Breath Alcohol Content: 0.065 Urine Pregancy Test - Result Urine Test Results: Negative- NO Line Present Urine Drug Screen - Results Drug Screen Negative: No Urine Drug Screen Results: ARIADNA-Cocaine Inpatient Rehab Admission - Initial Determination Are CD services needed?: Yes Free of communicable disease: Yes Not in need of hospitalization: Yes - Rehab Admission Criteria Previous failed treatment: Yes Patient is meeting Inpatient Rehab admission criteria:: Yes
[2017-03-13] MEDS ORDERED: MAGNESIUM CITRATE 300 ML BOTTLE PO PRN (15:54)
[2017-03-13] MEDS ORDERED: MAGNESIUM HYDROX 2400MG/30ML ORAL SUSPENSION 30 ML CUP PO PRN (15:54)
[2017-03-13] MEDS ORDERED: P-EPHED 60MG/TRIPROLIDI 2.5MG TABLET PO PRN (15:54)
[2017-03-13] MEDS ORDERED: LOPERAMIDE HCL 2 MG CAPSULE PO PRN (15:54)
[2017-03-13] MEDS ORDERED: ACETAMINOPHEN 325 MG TABLET (FP) PO PRN (15:54)
[2017-03-13 20:53] LABS: URINE APPEARANCE CLEAR; URINE BILIRUBIN NEGATIVE (NEGATIVE); URINE BLOOD NEGATIVE (NEGATIVE); URINE COLOR STRAW; URINE GLUCOSE (UA) NEGATIVE (NEGATIVE); URINE KETONE NEGATIVE (NEGATIVE); URINE NITRITE NEGATIVE (NEGATIVE); URINE PROTEIN NEGATIVE (NEGATIVE); URINE UROBILINOGEN NEGATIVE mg/dL (0.2-1.0)
[2017-03-13] MEDS: THIAMINE HCL 100 MG TABLET (FP) PO SCH (21:33)
[2017-03-13] MEDS: IBUPROFEN 400 MG TABLET (FP) PO PRN (21:33)
[2017-03-13] MEDS: NEVIRAPINE 200 MG TABLET PO SCH (21:37)
[2017-03-13] MEDS: CALCIUM 500MG/VIT-D 200 UNITS COMBO TABLET (FP) PO SCH (21:37)
[2017-03-13] MEDS ORDERED: VITAMIN D PO SCH (22:00)
[2017-03-13] MEDS ORDERED: lamiVUDine/ZIDOVUDINE 150/300 1 COMBO TABLET PO SCH (22:00)
[2017-03-13] MEDS ORDERED: CALCIUM CARBONATE PO SCH (22:00)
[2017-03-13] MEDS: traZODone HCL 50 MG TABLET (FP) PO SCH (23:03)
[2017-03-13] MEDS: hydrOXYzine PAMOATE 50 MG CAPSULE (FP) PO PRN (23:22)
[2017-03-14] MEDS: PRENATAL VITAMINS W/ FOLIC ACID TABLET (FP) PO SCH (09:54)
[2017-03-14] MEDS: METOPROLOL SUCCINATE 100 MG TAB.SR.24H (FP) PO SCH (09:54)
[2017-03-14] MEDS: NEVIRAPINE 200 MG TABLET PO SCH ×2 (09:54→21:29)
[2017-03-14] MEDS: CALCIUM 500MG/VIT-D 200 UNITS COMBO TABLET (FP) PO SCH ×2 (09:54→21:29)
[2017-03-14] MEDS: ASPIRIN 81 MG CHEWABLE TABLETS PO SCH (09:54)
[2017-03-14] MEDS ORDERED: MULTIVIT WITH IRON MINERALS PO SCH (10:00)
[2017-03-14 10:34] LABS: MEAN PLT VOLUME 9.2 fl (7.5-11.1); WHITE BLOOD COUNT 4.8 K/mm3 (4.0-10.0)
[2017-03-14 10:36] LABS: MCH 33.7 pg (25.7-33.7); MCHC 32.1 g/dl (32.0-36.0); MEAN CELL VOLUME 104.9 fl (80-96); PLATELET COUNT 179 K/MM3 (134-434); RDW 14.1 % (11.6-15.6)
[2017-03-14] MEDS: MAG HYDROX/AL HYDROX/SIMETH 30 ML UNIT-DOSE CUP PO PRN ×2 (10:36→23:09)
[2017-03-14 10:54] LABS: ALBUMIN 4.1 g/dl (3.4-5.0); ANION GAP 7 (8-16); CALCIUM 9.3 mg/dL (8.5-10.1); CO2 28 mmol/L (21-32); GLUCOSE,RANDOM 116 mg/dL (74-106); SGOT/AST 43 U/L (15-37); SGPT/ALT 42 U/L (12-78)
[2017-03-14 10:56] LABS: ALK PHOS 100 U/L (45-117); BILIRUBIN,TOTAL 0.3 mg/dL (0.2-1.0); CREATININE 1.2 mg/dL (0.55-1.02); TOT PROT 7.7 g/dl (6.4-8.2)
[2017-03-14] MEDS: lamiVUDine/ZIDOVUDINE 150/300 1 COMBO TABLET PO SCH ×2 (12:38→21:29)
[2017-03-14 16:07] LABS: URINE LEUK ESTERASE Negative (NEGATIVE)
[2017-03-14] MEDS: traZODone HCL 50 MG TABLET (FP) PO SCH (21:29)
[2017-03-14] MEDS: THIAMINE HCL 100 MG TABLET (FP) PO SCH (21:29)
[2017-03-14] MEDS: IBUPROFEN 400 MG TABLET (FP) PO PRN (21:30)
[2017-03-15] MEDS: ASPIRIN 81 MG CHEWABLE TABLETS PO SCH (09:41)
[2017-03-15] MEDS: METOPROLOL SUCCINATE 100 MG TAB.SR.24H (FP) PO SCH (09:41)
[2017-03-15] MEDS: PRENATAL VITAMINS W/ FOLIC ACID TABLET (FP) PO SCH (09:42)
[2017-03-15] MEDS: NEVIRAPINE 200 MG TABLET PO SCH ×2 (09:42→21:37)
[2017-03-15] MEDS: lamiVUDine/ZIDOVUDINE 150/300 1 COMBO TABLET PO SCH ×2 (09:42→21:37)
[2017-03-15] MEDS: CALCIUM 500MG/VIT-D 200 UNITS COMBO TABLET (FP) PO SCH ×2 (09:42→21:37)
[2017-03-15] MEDS: IBUPROFEN 400 MG TABLET (FP) PO PRN ×2 (09:43→21:38)
[2017-03-15] MEDS: MENTHOL/PHENOL 1 EACH UD MM PRN ×2 (13:07→23:45)
[2017-03-15] MEDS: traZODone HCL 50 MG TABLET (FP) PO SCH (21:36)
[2017-03-15] MEDS: THIAMINE HCL 100 MG TABLET (FP) PO SCH (21:36)
[2017-03-15] MEDS: MAG HYDROX/AL HYDROX/SIMETH 30 ML UNIT-DOSE CUP PO PRN (23:19)
[2017-03-16] MEDS: hydrOXYzine PAMOATE 50 MG CAPSULE (FP) PO PRN (00:50)
--- NOTE | 2017-03-16 09:42 | EKG ---
Test Reason : Blood Pressure : / mmHG Vent. Rate : 062 BPM Atrial Rate : 062 BPM P-R Int : 178 ms QRS Dur : 160 ms QT Int : 508 ms P-R-T Axes : 052 023 035 degrees QTc Int : 515 ms NORMAL SINUS RHYTHM LEFT ATRIAL ENLARGEMENT RIGHT BUNDLE BRANCH BLOCK LEFT VENTRICULAR HYPERTROPHY WITH REPOLARIZATION ABNORMALITY ABNORMAL ECG WHEN COMPARED WITH ECG OF 18-JUL-2016 20:30, RIGHT BUNDLE BRANCH BLOCK IS NOW PRESENT Confirmed by CLIFFORD OCHOA MD ([id number]) on 03/16/2017 9:42:16 AM Referred By: Confirmed By:CLIFFORD OCHOA MD
[2017-03-16] MEDS: CALCIUM 500MG/VIT-D 200 UNITS COMBO TABLET (FP) PO SCH ×2 (10:27→21:27)
[2017-03-16] MEDS: PRENATAL VITAMINS W/ FOLIC ACID TABLET (FP) PO SCH (10:27)
[2017-03-16] MEDS: ASPIRIN 81 MG CHEWABLE TABLETS PO SCH (10:27)
[2017-03-16] MEDS: METOPROLOL SUCCINATE 100 MG TAB.SR.24H (FP) PO SCH (10:27)
[2017-03-16] MEDS: lamiVUDine/ZIDOVUDINE 150/300 1 COMBO TABLET PO SCH ×2 (10:29→21:27)
[2017-03-16] MEDS ORDERED: PT OWN MED DRAWER 7, Y5N ONE ×2 (10:29→20:16)
[2017-03-16] MEDS: NEVIRAPINE 200 MG TABLET PO SCH ×2 (10:29→21:27)
--- NOTE | 2017-03-16 13:24 | HP ---
Psychiatrist Admission - Data Date of interview: 03/16/17 Admission source: [facility] Identifying data: This is the 4th admission [facility] [address] [place], [place] [address] this 61 years old AA single mother of 1 grown daughter,resides in Supportive Housing,on [employer] benefits. Medical History: Significant for HIV+,AIDS,Cardiomyopathy. Psychiatric History: Patient reports no psychiatric history except some sleeping difficulties,takes Trazodone once in a while with good response. Vital Signs: Vital Signs - 24 hr 03/16/17 03/16/17 06:59 10:25 Temperature 97.8 F Pulse Rate 47 L 72 Respiratory 18 Rate Blood Pressure 122/85 115/68 Allergies/Adverse Reactions: Allergies Allergy/AdvReac Type Severity Reaction Status Date / Time No Known Allergies Allergy Verified 03/13/17 12:32 Date of last physical exam: 03/13/17 Concur with the findings of this exam: Yes - Substance Abuse/Tx History Hx Alcohol Use: Yes (drinking since 12 yo,3-6 packs daily) Hx Substance Use: Yes (crack since 20 yo,$100-200 daily) Substance Use Type: Alcohol, Cocaine Hx Substance Use Treatment: Yes (completed this program in November 2016) Mental Status Exam - Mental Status Exam Alert and Oriented to: Time, Place, Person Cognitive Function: Grossly Intact Patient Appearance: Unkempt Mood: Sad Affect: Mood Congruent, Labile Patient Behavior: Cooperative Speech Pattern: Clear Voice Loudness: Normal Thought Process: Goal Oriented Thought Disorder: Not Present Hallucinations: Denies Suicidal Ideation: Denies Homicidal Ideation: Denies Insight/Judgement: Fair Sleep: Fair Appetite: Fair Muscle strength/Tone: Normal Gait/Station: Normal Psychiatric Findings - Problem List ([place] 1, 2,3) (1) Substance-induced sleep disorder Current Visit: Yes Status: Chronic (2) AIDS (acquired immune deficiency syndrome) Current Visit: Yes Status: Chronic Comment: SINCE 1996 (3) Alcohol dependence Current Visit: Yes Status: Chronic Qualifiers: Substance use status: uncomplicated Qualified Code(s): F10.20 - Alcohol dependence, uncomplicated Comment: . (4) Anemia Current Visit: Yes Status: Chronic Qualifiers: Anemia type: iron deficiency Comment: LAB PENDING (5) Cardiomyopathy, hypertrophic Current Visit: Yes Status: Chronic (6) Cocaine dependence Current Visit: Yes Status: Chronic Comment: . (7) GERD (gastroesophageal reflux disease) Current Visit: Yes Status: Chronic Qualifiers: Esophagitis presence: without esophagitis Qualified Code(s): K21.9 - Gastro -esophageal reflux disease without esophagitis - Initial Treatment Plan Initial Treatment Plan: Trazodone 50 mg po hs.Will monitor progress.
[2017-03-16] MEDS: traZODone HCL 100 MG TABLET (FP) PO SCH (21:27)
[2017-03-16] MEDS: IBUPROFEN 400 MG TABLET (FP) PO PRN (21:27)
[2017-03-16] MEDS: THIAMINE HCL 100 MG TABLET (FP) PO SCH (21:27)
[2017-03-17] MEDS: NEVIRAPINE 200 MG TABLET PO SCH ×2 (10:17→21:41)
[2017-03-17] MEDS: ASPIRIN 81 MG CHEWABLE TABLETS PO SCH (10:17)
[2017-03-17] MEDS: lamiVUDine/ZIDOVUDINE 150/300 1 COMBO TABLET PO SCH ×2 (10:17→21:43)
[2017-03-17] MEDS: PRENATAL VITAMINS W/ FOLIC ACID TABLET (FP) PO SCH (10:18)
[2017-03-17] MEDS: METOPROLOL SUCCINATE 100 MG TAB.SR.24H (FP) PO SCH (10:18)
[2017-03-17] MEDS: CALCIUM 500MG/VIT-D 200 UNITS COMBO TABLET (FP) PO SCH ×2 (10:18→21:41)
[2017-03-17] MEDS: guaiFENesin/D-METHORPHAN HB 10 ML UNIT-DOSE CUPS PO PRN (10:19)
[2017-03-17] MEDS: MENTHOL/PHENOL 1 EACH UD MM PRN (11:09)
[2017-03-17] MEDS ORDERED: PT OWN MED DRAWER 7, Y5N ONE ×2 (19:53→21:46)
[2017-03-17] MEDS: THIAMINE HCL 100 MG TABLET (FP) PO SCH (21:41)
[2017-03-17] MEDS ORDERED: traZODone HCL 50 MG TABLET (FP) ONE (21:43)
[2017-03-17] MEDS: traZODone HCL 100 MG TABLET (FP) PO SCH (21:44)
[2017-03-18] MEDS: guaiFENesin/D-METHORPHAN HB 10 ML UNIT-DOSE CUPS PO PRN ×3 (06:15→21:32)
[2017-03-18] MEDS ORDERED: PT OWN MED DRAWER 7, Y5N ONE ×2 (08:38→10:13)
[2017-03-18] MEDS: PRENATAL VITAMINS W/ FOLIC ACID TABLET (FP) PO SCH (10:10)
[2017-03-18] MEDS: CALCIUM 500MG/VIT-D 200 UNITS COMBO TABLET (FP) PO SCH ×2 (10:10→21:31)
[2017-03-18] MEDS: ASPIRIN 81 MG CHEWABLE TABLETS PO SCH (10:11)
[2017-03-18] MEDS: METOPROLOL SUCCINATE 100 MG TAB.SR.24H (FP) PO SCH (10:11)
[2017-03-18] MEDS: NEVIRAPINE 200 MG TABLET PO SCH ×2 (10:12→21:30)
[2017-03-18] MEDS: lamiVUDine/ZIDOVUDINE 150/300 1 COMBO TABLET PO SCH ×2 (10:13→21:31)
[2017-03-18] MEDS: MENTHOL/PHENOL 1 EACH UD MM PRN (10:42)
[2017-03-18] MEDS: traZODone HCL 100 MG TABLET (FP) PO SCH (21:31)
[2017-03-18] MEDS: THIAMINE HCL 100 MG TABLET (FP) PO SCH (21:31)
[2017-03-18] MEDS: diphenhydrAMINE HCL 50 MG CAPSULE PO PRN (22:50)
[2017-03-19] MEDS: PRENATAL VITAMINS W/ FOLIC ACID TABLET (FP) PO SCH (09:53)
[2017-03-19] MEDS: lamiVUDine/ZIDOVUDINE 150/300 1 COMBO TABLET PO SCH ×2 (09:53→21:46)
[2017-03-19] MEDS: NEVIRAPINE 200 MG TABLET PO SCH ×2 (09:53→21:44)
[2017-03-19] MEDS: ASPIRIN 81 MG CHEWABLE TABLETS PO SCH (09:53)
[2017-03-19] MEDS: METOPROLOL SUCCINATE 100 MG TAB.SR.24H (FP) PO SCH (09:54)
[2017-03-19] MEDS: CALCIUM 500MG/VIT-D 200 UNITS COMBO TABLET (FP) PO SCH ×2 (09:54→21:43)
[2017-03-19] MEDS: guaiFENesin/D-METHORPHAN HB 10 ML UNIT-DOSE CUPS PO PRN (09:55)
[2017-03-19] MEDS ORDERED: PT OWN MED DRAWER 7, Y5N ONE ×2 (19:43→21:45)
[2017-03-19] MEDS: THIAMINE HCL 100 MG TABLET (FP) PO SCH (21:43)
[2017-03-19] MEDS: traZODone HCL 100 MG TABLET (FP) PO SCH (21:43)
[2017-03-20] MEDS ORDERED: PT OWN MED DRAWER 7, Y5N ONE ×2 (08:50→19:36)
[2017-03-20] MEDS: NEVIRAPINE 200 MG TABLET PO SCH ×2 (10:11→21:24)
[2017-03-20] MEDS: METOPROLOL SUCCINATE 100 MG TAB.SR.24H (FP) PO SCH (10:11)
[2017-03-20] MEDS: ASPIRIN 81 MG CHEWABLE TABLETS PO SCH (10:11)
[2017-03-20] MEDS: PRENATAL VITAMINS W/ FOLIC ACID TABLET (FP) PO SCH (10:11)
[2017-03-20] MEDS: lamiVUDine/ZIDOVUDINE 150/300 1 COMBO TABLET PO SCH ×2 (10:11→21:23)
[2017-03-20] MEDS: CALCIUM 500MG/VIT-D 200 UNITS COMBO TABLET (FP) PO SCH ×2 (10:12→21:24)
[2017-03-20] MEDS ORDERED: COLLOIDAL OATMEAL 1 BAR EACH TP PRN (13:20)
[2017-03-20] MEDS: IBUPROFEN 400 MG TABLET (FP) PO PRN (15:31)
[2017-03-20] MEDS: traZODone HCL 100 MG TABLET (FP) PO SCH (23:06)
[2017-03-20] MEDS: CYCLOBENZAPRINE HCL 5 MG TABLET PO PRN (23:07)
[2017-03-20] MEDS: THIAMINE HCL 100 MG TABLET (FP) PO SCH (23:08)
[2017-03-21] MEDS ORDERED: PT OWN MED DRAWER 7, Y5N ONE (08:32)
[2017-03-21] MEDS: METOPROLOL SUCCINATE 100 MG TAB.SR.24H (FP) PO SCH (09:37)
[2017-03-21] MEDS: ASPIRIN 81 MG CHEWABLE TABLETS PO SCH (09:37)
[2017-03-21] MEDS: CALCIUM 500MG/VIT-D 200 UNITS COMBO TABLET (FP) PO SCH ×2 (09:37→21:59)
[2017-03-21] MEDS: PRENATAL VITAMINS W/ FOLIC ACID TABLET (FP) PO SCH (09:37)
[2017-03-21] MEDS: NEVIRAPINE 200 MG TABLET PO SCH ×2 (09:37→22:00)
[2017-03-21] MEDS: lamiVUDine/ZIDOVUDINE 150/300 1 COMBO TABLET PO SCH ×2 (09:37→21:59)
[2017-03-21] MEDS: THIAMINE HCL 100 MG TABLET (FP) PO SCH (22:00)
[2017-03-21] MEDS: traZODone HCL 100 MG TABLET (FP) PO SCH (22:56)
[2017-03-21] MEDS: CYCLOBENZAPRINE HCL 5 MG TABLET PO PRN (22:57)
[2017-03-22] MEDS ORDERED: PT OWN MED DRAWER 7, Y5N ONE (08:36)
[2017-03-22] MEDS: lamiVUDine/ZIDOVUDINE 150/300 1 COMBO TABLET PO SCH ×2 (10:01→21:54)
[2017-03-22] MEDS: PRENATAL VITAMINS W/ FOLIC ACID TABLET (FP) PO SCH (10:01)
[2017-03-22] MEDS: CALCIUM 500MG/VIT-D 200 UNITS COMBO TABLET (FP) PO SCH ×2 (10:01→21:54)
[2017-03-22] MEDS: ASPIRIN 81 MG CHEWABLE TABLETS PO SCH (10:01)
[2017-03-22] MEDS: NEVIRAPINE 200 MG TABLET PO SCH ×2 (10:01→21:54)
[2017-03-22] MEDS: METOPROLOL SUCCINATE 100 MG TAB.SR.24H (FP) PO SCH (10:02)
--- NOTE | 2017-03-22 13:35 | PN ---
S Progress Note Note: oropharyngeal candidiasis ,hiv,will give diflucan 100 mgs po now then daily, fluid,no respiratory difficulty
[2017-03-22] MEDS: FLUCONAZOLE 100 MG TABLET (UD) PO SCH (13:45)
[2017-03-22] MEDS: THIAMINE HCL 100 MG TABLET (FP) PO SCH (21:54)
[2017-03-22] MEDS: MENTHOL/PHENOL 1 EACH UD MM PRN (21:56)
[2017-03-22] MEDS: CYCLOBENZAPRINE HCL 5 MG TABLET PO PRN (22:55)
[2017-03-22] MEDS: traZODone HCL 100 MG TABLET (FP) PO SCH (22:55)
[2017-03-23] MEDS ORDERED: PT OWN MED DRAWER 7, Y5N ONE ×2 (08:55→19:32)
[2017-03-23] MEDS: ASPIRIN 81 MG CHEWABLE TABLETS PO SCH (10:04)
[2017-03-23] MEDS: METOPROLOL SUCCINATE 100 MG TAB.SR.24H (FP) PO SCH (10:04)
[2017-03-23] MEDS: CALCIUM 500MG/VIT-D 200 UNITS COMBO TABLET (FP) PO SCH ×2 (10:04→21:34)
[2017-03-23] MEDS: NEVIRAPINE 200 MG TABLET PO SCH ×2 (10:05→21:36)
[2017-03-23] MEDS: PRENATAL VITAMINS W/ FOLIC ACID TABLET (FP) PO SCH (10:05)
[2017-03-23] MEDS: FLUCONAZOLE 100 MG TABLET (UD) PO SCH (10:05)
[2017-03-23] MEDS: lamiVUDine/ZIDOVUDINE 150/300 1 COMBO TABLET PO SCH ×2 (10:05→21:35)
[2017-03-23] MEDS: guaiFENesin/D-METHORPHAN HB 10 ML UNIT-DOSE CUPS PO PRN (11:01)
[2017-03-23] MEDS: THIAMINE HCL 100 MG TABLET (FP) PO SCH (21:34)
[2017-03-23] MEDS: traZODone HCL 100 MG TABLET (FP) PO SCH (21:35)
[2017-03-23] MEDS: CYCLOBENZAPRINE HCL 5 MG TABLET PO PRN (21:37)
[2017-03-24] MEDS ORDERED: PT OWN MED DRAWER 7, Y5N ONE ×2 (08:48→19:45)
[2017-03-24] MEDS: PRENATAL VITAMINS W/ FOLIC ACID TABLET (FP) PO SCH (10:13)
[2017-03-24] MEDS: lamiVUDine/ZIDOVUDINE 150/300 1 COMBO TABLET PO SCH ×2 (10:13→22:59)
[2017-03-24] MEDS: NEVIRAPINE 200 MG TABLET PO SCH ×2 (10:13→22:58)
[2017-03-24] MEDS: FLUCONAZOLE 100 MG TABLET (UD) PO SCH (10:13)
[2017-03-24] MEDS: METOPROLOL SUCCINATE 100 MG TAB.SR.24H (FP) PO SCH (10:13)
[2017-03-24] MEDS: ASPIRIN 81 MG CHEWABLE TABLETS PO SCH (10:13)
[2017-03-24] MEDS: CALCIUM 500MG/VIT-D 200 UNITS COMBO TABLET (FP) PO SCH ×2 (10:13→22:58)
[2017-03-24] MEDS: traZODone HCL 100 MG TABLET (FP) PO SCH (22:58)
[2017-03-24] MEDS: THIAMINE HCL 100 MG TABLET (FP) PO SCH (23:00)
[2017-03-24] MEDS: CYCLOBENZAPRINE HCL 5 MG TABLET PO PRN (23:02)
[2017-03-25] MEDS: CALCIUM 500MG/VIT-D 200 UNITS COMBO TABLET (FP) PO SCH ×2 (09:54→21:25)
[2017-03-25] MEDS: lamiVUDine/ZIDOVUDINE 150/300 1 COMBO TABLET PO SCH ×2 (09:54→21:26)
[2017-03-25] MEDS: ASPIRIN 81 MG CHEWABLE TABLETS PO SCH (09:54)
[2017-03-25] MEDS: FLUCONAZOLE 100 MG TABLET (UD) PO SCH (09:54)
[2017-03-25] MEDS: PRENATAL VITAMINS W/ FOLIC ACID TABLET (FP) PO SCH (09:55)
[2017-03-25] MEDS: NEVIRAPINE 200 MG TABLET PO SCH ×2 (09:55→21:26)
[2017-03-25] MEDS: METOPROLOL SUCCINATE 100 MG TAB.SR.24H (FP) PO SCH (09:56)
[2017-03-25] MEDS: traZODone HCL 100 MG TABLET (FP) PO SCH (21:25)
[2017-03-25] MEDS: THIAMINE HCL 100 MG TABLET (FP) PO SCH (21:25)
[2017-03-25] MEDS: CYCLOBENZAPRINE HCL 5 MG TABLET PO PRN (21:27)
[2017-03-25] MEDS: diphenhydrAMINE HCL 50 MG CAPSULE PO PRN (21:27)
[2017-03-26] MEDS ORDERED: PT OWN MED DRAWER 7, Y5N ONE ×3 (08:46→22:43)
[2017-03-26] MEDS: CALCIUM 500MG/VIT-D 200 UNITS COMBO TABLET (FP) PO SCH ×2 (10:15→21:22)
[2017-03-26] MEDS: lamiVUDine/ZIDOVUDINE 150/300 1 COMBO TABLET PO SCH ×2 (10:15→21:28)
[2017-03-26] MEDS: PRENATAL VITAMINS W/ FOLIC ACID TABLET (FP) PO SCH (10:15)
[2017-03-26] MEDS: NEVIRAPINE 200 MG TABLET PO SCH ×2 (10:15→21:29)
[2017-03-26] MEDS: METOPROLOL SUCCINATE 100 MG TAB.SR.24H (FP) PO SCH (10:15)
[2017-03-26] MEDS: FLUCONAZOLE 100 MG TABLET (UD) PO SCH (10:15)
[2017-03-26] MEDS: ASPIRIN 81 MG CHEWABLE TABLETS PO SCH (10:15)
[2017-03-26] MEDS: THIAMINE HCL 100 MG TABLET (FP) PO SCH (21:22)
[2017-03-26] MEDS: traZODone HCL 100 MG TABLET (FP) PO SCH (21:22)
[2017-03-26] MEDS: CYCLOBENZAPRINE HCL 5 MG TABLET PO PRN (21:22)
[2017-03-26] MEDS: diphenhydrAMINE HCL 50 MG CAPSULE PO PRN (21:55)
[2017-03-27] MEDS: PRENATAL VITAMINS W/ FOLIC ACID TABLET (FP) PO SCH (10:12)
[2017-03-27] MEDS: CALCIUM 500MG/VIT-D 200 UNITS COMBO TABLET (FP) PO SCH ×2 (10:12→21:38)
[2017-03-27] MEDS: METOPROLOL SUCCINATE 100 MG TAB.SR.24H (FP) PO SCH (10:12)
[2017-03-27] MEDS: FLUCONAZOLE 100 MG TABLET (UD) PO SCH (10:12)
[2017-03-27] MEDS: ASPIRIN 81 MG CHEWABLE TABLETS PO SCH (10:12)
[2017-03-27] MEDS: NEVIRAPINE 200 MG TABLET PO SCH ×2 (10:13→21:39)
[2017-03-27] MEDS: lamiVUDine/ZIDOVUDINE 150/300 1 COMBO TABLET PO SCH ×2 (10:13→21:39)
--- NOTE | 2017-03-27 14:34 | PN ---
Psychiatric Progress Note Vital Signs: Vital Signs Period Temp Pulse Resp BP Sys/Cuevas Pulse Ox Last 24 Hr 97.8 F 51-57 16-18 129-137/81-93 Date of Session: 03/27/17 Chief Complaint:: I need something to help me to stop drinking. HPI: Alcohol,Cocaine dependence comorbid with Substance induced mood/sleep disorder. ROS: Significant for HIV+,AIDS. Current Medications: Active Medications Generic Name Dose Route Start Last Admin Trade Name Freq PRN Reason Stop Dose Admin Acetaminophen 650 mg 03/13/17 15:54 Tylenol - PO Q4H PRN PAIN Al Hydroxide/Mg Hydroxide 30 ml 03/13/17 15:54 03/15/17 23:19 Mylanta Oral Suspension - PO 30 ml Q6H PRN Administration DYSPEPSIA Aspirin 81 mg 03/14/17 10:00 03/27/17 10:12 Asa - PO 81 mg DAILY TERESA Administration Calcium Carbonate/Cholecalciferol 1 tab 03/13/17 22:00 03/27/17 10:12 Os-Francisco 500+D - PO 1 tab BID TERESA Administration Colloidal Oatmeal 1 applic 03/20/17 13:20 03/20/17 18:21 Aveeno Soap - TP 1 applic DAILY PRN Administration HYGEINE Cyclobenzaprine HCl 5 mg 03/20/17 13:27 03/26/17 21:22 Cyclobenzaprine Hcl PO 5 mg TID PRN Administration MUSCLE SPASMS Diphenhydramine HCl 50 mg 03/16/17 13:26 03/26/17 21:55 Benadryl - PO 50 mg HS PRN Administration INSOMNIA Eucalyptus/Menthol/Phenol/Sorbitol 1 each 03/13/17 15:54 03/22/17 21:56 Cepastat Lozenge - MM 1 each Q4H PRN Administration SORE THROAT Fluconazole 100 mg 03/22/17 13:45 03/27/17 10:12 Diflucan - PO 100 mg DAILY TERESA Administration Guaifenesin 10 ml 03/13/17 15:54 03/23/17 11:01 Robitussin Dm - PO 10 ml Q6H PRN Administration COUGH Hydroxyzine Pamoate 50 mg 03/13/17 15:54 03/16/17 00:50 Vistaril - PO 50 mg Q4H PRN Administration AGITATION Ibuprofen 400 mg 03/13/17 15:54 03/20/17 15:31 Motrin - PO 400 mg Q6H PRN Administration SEVERE PAIN Lamivudine/Zidovudine 1 tablet 03/14/17 11:00 03/27/17 10:13 Combivir Tablet 150/300 - PO 1 tablet BID TERESA Administration Loperamide HCl 4 mg 03/13/17 15:54 Imodium - PO Q6H PRN DIARRHEA Magnesium Citrate 300 ml 03/13/17 15:54 Citroma - PO Q48H PRN CONSTIPATION Magnesium Hydroxide 30 ml 03/13/17 15:54 Milk Of Magnesia - PO DAILY PRN CONSTIPATION Metoprolol Succinate 200 mg 03/14/17 10:00 03/27/17 10:12 Toprol Xl - PO 200 mg DAILY TERESA Administration Nevirapine 200 mg 03/13/17 22:00 03/27/17 10:13 Viramune - PO 200 mg BID TERESA Administration Multivit/Folic Acid/Iron 1 tab 03/14/17 10:00 03/27/17 10:12 Vitamins (Sjr) - PO 1 tab DAILY TERESA Administration Pseudoephedrine/Triprolidine 1 combo 03/13/17 15:54 Actifed - PO TID PRN NASAL CONGESTION Thiamine HCl 100 mg 03/13/17 22:00 03/26/17 21:22 Vitamin B1 - PO 100 mg HS TERESA Administration Trazodone HCl 100 mg 03/16/17 22:00 03/26/17 21:22 Desyrel - PO 100 mg HS TERESA Administration Current Side Effect: No Lab tests ordered: No Lab tests reviewed: Yes Provider note:: Chart was revuewed,patient was seen to address still some craving for drinking .Properties of Campral including side effect profile, benefits and dose adjustment has been discussed with the patient .Continue Trazodone 100 mg po hs,start Campral 333 mg po 2 tab tid . Supportive therapy provided. Total face to face time:: 30 Mental Status Exam - Mental Status Exam Alert and Oriented to: Time, Place, Person Cognitive Function: Grossly Intact Patient Appearance: Well Groomed Mood: Euthymic Affect: Mood Congruent Patient Behavior: Cooperative Speech Pattern: Clear Voice Loudness: Normal Thought Process: Goal Oriented Thought Disorder: Not Present Hallucinations: Denies Suicidal Ideation: Denies Homicidal Ideation: Denies Insight/Judgement: Fair Sleep: Fair Appetite: Good Muscle strength/Tone: Normal Gait/Station: Normal Psychiatric Treatment Plan - Problem List (1) Substance-induced sleep disorder Current Visit: Yes (2) AIDS (acquired immune deficiency syndrome) Current Visit: Yes Comment: SINCE 1996 (3) Alcohol dependence Current Visit: Yes Qualifiers: Substance use status: uncomplicated Qualified Code(s): F10.20 - Alcohol dependence, uncomplicated Comment: . (4) Anemia Current Visit: Yes Qualifiers: Anemia type: iron deficiency Comment: LAB PENDING (5) Cardiomyopathy, hypertrophic Current Visit: Yes (6) Cocaine dependence Current Visit: Yes Comment: . (7) GERD (gastroesophageal reflux disease) Current Visit: Yes Qualifiers: Esophagitis presence: without esophagitis Qualified Code(s): K21.9 - Gastro -esophageal reflux disease without esophagitis
[2017-03-27] MEDS: traZODone HCL 100 MG TABLET (FP) PO SCH (21:38)
[2017-03-27] MEDS: THIAMINE HCL 100 MG TABLET (FP) PO SCH (21:38)
[2017-03-27] MEDS: diphenhydrAMINE HCL 50 MG CAPSULE PO PRN (23:12)
[2017-03-27] MEDS: CYCLOBENZAPRINE HCL 5 MG TABLET PO PRN (23:12)
[2017-03-28] MEDS ORDERED: PT OWN MED DRAWER 7, Y5N ONE ×2 (08:25→19:59)
[2017-03-28] MEDS: IBUPROFEN 400 MG TABLET (FP) PO PRN (08:39)
[2017-03-28] MEDS: NEVIRAPINE 200 MG TABLET PO SCH ×2 (09:52→21:19)
[2017-03-28] MEDS: METOPROLOL SUCCINATE 100 MG TAB.SR.24H (FP) PO SCH (09:52)
[2017-03-28] MEDS: lamiVUDine/ZIDOVUDINE 150/300 1 COMBO TABLET PO SCH ×2 (09:52→21:19)
[2017-03-28] MEDS: ASPIRIN 81 MG CHEWABLE TABLETS PO SCH (09:52)
[2017-03-28] MEDS: CALCIUM 500MG/VIT-D 200 UNITS COMBO TABLET (FP) PO SCH ×2 (09:53→21:20)
[2017-03-28] MEDS: FLUCONAZOLE 100 MG TABLET (UD) PO SCH (09:53)
[2017-03-28] MEDS: PRENATAL VITAMINS W/ FOLIC ACID TABLET (FP) PO SCH (09:53)
[2017-03-28] MEDS: THIAMINE HCL 100 MG TABLET (FP) PO SCH (21:20)
[2017-03-28] MEDS: traZODone HCL 100 MG TABLET (FP) PO SCH (22:34)
[2017-03-28] MEDS: CYCLOBENZAPRINE HCL 5 MG TABLET PO PRN (22:42)
[2017-03-29] MEDS: FLUCONAZOLE 100 MG TABLET (UD) PO SCH (10:14)
[2017-03-29] MEDS: CALCIUM 500MG/VIT-D 200 UNITS COMBO TABLET (FP) PO SCH ×2 (10:14→21:24)
[2017-03-29] MEDS: NEVIRAPINE 200 MG TABLET PO SCH ×2 (10:14→21:24)
[2017-03-29] MEDS: ASPIRIN 81 MG CHEWABLE TABLETS PO SCH (10:14)
[2017-03-29] MEDS: lamiVUDine/ZIDOVUDINE 150/300 1 COMBO TABLET PO SCH ×2 (10:14→21:24)
[2017-03-29] MEDS: PRENATAL VITAMINS W/ FOLIC ACID TABLET (FP) PO SCH (10:14)
[2017-03-29] MEDS: METOPROLOL SUCCINATE 100 MG TAB.SR.24H (FP) PO SCH (10:15)
[2017-03-29] MEDS: traZODone HCL 100 MG TABLET (FP) PO SCH (21:24)
[2017-03-29] MEDS: THIAMINE HCL 100 MG TABLET (FP) PO SCH (21:24)
[2017-03-29] MEDS: CYCLOBENZAPRINE HCL 5 MG TABLET PO PRN (22:45)
[2017-03-29] MEDS: diphenhydrAMINE HCL 50 MG CAPSULE PO PRN (22:45)
[2017-03-30 06:51] VITALS: TEMP 98
[2017-03-30] MEDS: IBUPROFEN 400 MG TABLET (FP) PO PRN (07:43)
--- NOTE | 2017-03-30 08:03 | PN ---
Psychiatric Progress Note Vital Signs: Vital Signs Period Temp Pulse Resp BP Sys/Cuevas Pulse Ox Last 24 Hr 98 F 57-58 16-18 135-156/81-88 Date of Session: 03/30/17 Chief Complaint:: Dischsrge visit HPI: Patient addressed Alcohol,Cocaine dependence comorbid with Substance induced mood disorder. ROS: Significant for AIDS,Anemia,GERD. Current Medications: Active Medications Generic Name Dose Route Start Last Admin Trade Name Freq PRN Reason Stop Dose Admin Acetaminophen 650 mg 03/13/17 15:54 Tylenol - PO Q4H PRN PAIN Al Hydroxide/Mg Hydroxide 30 ml 03/13/17 15:54 03/15/17 23:19 Mylanta Oral Suspension - PO 30 ml Q6H PRN Administration DYSPEPSIA Aspirin 81 mg 03/14/17 10:00 03/29/17 10:14 Asa - PO 81 mg DAILY TERESA Administration Calcium Carbonate/Cholecalciferol 1 tab 03/13/17 22:00 03/29/17 21:24 Os-Francisco 500+D - PO 1 tab BID TERESA Administration Colloidal Oatmeal 1 applic 03/20/17 13:20 03/20/17 18:21 Aveeno Soap - TP 1 applic DAILY PRN Administration HYGEINE Cyclobenzaprine HCl 5 mg 03/20/17 13:27 03/29/17 22:45 Cyclobenzaprine Hcl PO 5 mg TID PRN Administration MUSCLE SPASMS Diphenhydramine HCl 50 mg 03/16/17 13:26 03/29/17 22:45 Benadryl - PO 50 mg HS PRN Administration INSOMNIA Eucalyptus/Menthol/Phenol/Sorbitol 1 each 03/13/17 15:54 03/22/17 21:56 Cepastat Lozenge - MM 1 each Q4H PRN Administration SORE THROAT Fluconazole 100 mg 03/22/17 13:45 03/29/17 10:14 Diflucan - PO 100 mg DAILY TERESA Administration Guaifenesin 10 ml 03/13/17 15:54 03/23/17 11:01 Robitussin Dm - PO 10 ml Q6H PRN Administration COUGH Hydroxyzine Pamoate 50 mg 03/13/17 15:54 03/16/17 00:50 Vistaril - PO 50 mg Q4H PRN Administration AGITATION Ibuprofen 400 mg 03/13/17 15:54 12/04/17 07:43 Motrin - PO 400 mg Q6H PRN Administration SEVERE PAIN Lamivudine/Zidovudine 1 tablet 03/14/17 11:00 03/29/17 21:24 Combivir Tablet 150/300 - PO 1 tablet BID TERESA Administration Loperamide HCl 4 mg 03/13/17 15:54 Imodium - PO Q6H PRN DIARRHEA Magnesium Citrate 300 ml 03/13/17 15:54 Citroma - PO Q48H PRN CONSTIPATION Magnesium Hydroxide 30 ml 03/13/17 15:54 Milk Of Magnesia - PO DAILY PRN CONSTIPATION Metoprolol Succinate 200 mg 03/14/17 10:00 03/29/17 10:15 Toprol Xl - PO 200 mg DAILY TERESA Administration Nevirapine 200 mg 03/13/17 22:00 03/29/17 21:24 Viramune - PO 200 mg BID TERESA Administration Multivit/Folic Acid/Iron 1 tab 03/14/17 10:00 03/29/17 10:14 Vitamins (Sjr) - PO 1 tab DAILY TERESA Administration Pseudoephedrine/Triprolidine 1 combo 03/13/17 15:54 Actifed - PO TID PRN NASAL CONGESTION Thiamine HCl 100 mg 03/13/17 22:00 03/29/17 21:24 Vitamin B1 - PO 100 mg HS TERESA Administration Trazodone HCl 100 mg 03/16/17 22:00 03/29/17 21:24 Desyrel - PO 100 mg HS TERESA Administration Current Side Effect: No Lab tests ordered: No Lab tests reviewed: Yes Provider note:: Patient completed this program today.She has met her treatment goals and will continue to address her issues on outpatient basis at [facility]. Patient reports finding Trazodone 100 mg po hs helps to cope with sleeping difficulties.Script for 30 days provided. Patient identifies areas of difficulties and behaviors contribue to relapse.Coping skills,support system utilization has been discussed as well. Patient is stable for discharge today. Total face to face time:: 30 Mental Status Exam - Mental Status Exam Alert and Oriented to: Time, Place, Person Cognitive Function: Grossly Intact Patient Appearance: Well Groomed Mood: Hopeful, Euthymic Affect: Appropriate, Mood Congruent Patient Behavior: Cooperative Speech Pattern: Clear Voice Loudness: Normal Thought Process: Goal Oriented Thought Disorder: Not Present Hallucinations: Denies Suicidal Ideation: Denies Homicidal Ideation: Denies Insight/Judgement: Fair Sleep: Fair Appetite: Good Muscle strength/Tone: Normal Gait/Station: Normal Psychiatric Treatment Plan - Problem List (1) Substance-induced sleep disorder Current Visit: Yes (2) AIDS (acquired immune deficiency syndrome) Current Visit: Yes Comment: SINCE 1996 (3) Alcohol dependence Current Visit: Yes Qualifiers: Substance use status: uncomplicated Qualified Code(s): F10.20 - Alcohol dependence, uncomplicated Comment: . (4) Anemia Current Visit: Yes Qualifiers: Anemia type: iron deficiency Comment: LAB PENDING (5) Cardiomyopathy, hypertrophic Current Visit: Yes (6) Cocaine dependence Current Visit: Yes Comment: . (7) GERD (gastroesophageal reflux disease) Current Visit: Yes Qualifiers: Esophagitis presence: without esophagitis Qualified Code(s): K21.9 - Gastro -esophageal reflux disease without esophagitis
[2017-03-30] MEDS ORDERED: PT OWN MED DRAWER 7, Y5N ONE (08:17)
[2017-03-30 09:34] VITALS: BP 122/79; PULSE 57
[2017-03-30] MEDS: lamiVUDine/ZIDOVUDINE 150/300 1 COMBO TABLET PO SCH (09:43)
[2017-03-30] MEDS: ASPIRIN 81 MG CHEWABLE TABLETS PO SCH (09:43)
[2017-03-30] MEDS: METOPROLOL SUCCINATE 100 MG TAB.SR.24H (FP) PO SCH (09:43)
[2017-03-30] MEDS: PRENATAL VITAMINS W/ FOLIC ACID TABLET (FP) PO SCH (09:43)
[2017-03-30] MEDS: NEVIRAPINE 200 MG TABLET PO SCH (09:43)
[2017-03-30] MEDS: CALCIUM 500MG/VIT-D 200 UNITS COMBO TABLET (FP) PO SCH (09:44)
[2017-03-30] MEDS: FLUCONAZOLE 100 MG TABLET (UD) PO SCH (09:44)
[2017-03-30] MEDS ORDERED: ACAMPROSATE CALCIUM 333 MG TABLET.DR PO SCH (10:15)
== END 2017-03-30 10:26 | disposition home or self-care (01) | DRG 772 ==
LOC: YASAS 11:53 → Y3E 16:58
PROVIDERS: ADMIT Psychiatry & Neurology Psychiatry; ATTEND Psychiatry & Neurology Psychiatry
PROC: HZ42ZZZ Group Counseling for Substance Abuse Treatment, Cognitive-Behavioral (ICD-10-PCS; principal; 2017-03-13)
DX: F10.20 Alcohol dependence, uncomplicated (principal); I42.2 Other hypertrophic cardiomyopathy; I10 Essential (primary) hypertension; B37.0 Candidal stomatitis; K21.9 Gastro-esophageal reflux disease without esophagitis; D50.9 Iron deficiency anemia, unspecified; B20 Human immunodeficiency virus [HIV] disease
CPT/HCPCS: 36415; 80053; 81003; 85027; 86593; 93005; 93010

== ENCOUNTER 2022-08-15 10:26 | Inpatient (IN) | payer OTHER ==
[2022-08-15 10:57] VITALS: BMI 16.9
[2022-08-15] MEDS ORDERED: COLLOIDAL OATMEAL 1 BAR EACH TP PRN (11:22)
[2022-08-15] MEDS ORDERED: BENZONATATE 200 MG CAPSULE PO PRN (11:22)
[2022-08-15] MEDS ORDERED: LOPERAMIDE HCL 2 MG CAPSULE PO PRN (11:22)
[2022-08-15] MEDS ORDERED: ACETAMINOPHEN 325 MG TABLET (FP) PO PRN (11:22)
[2022-08-15] MEDS ORDERED: NALOXONE HCL 0.4 MG/ML VIAL IM PRN (11:22)
[2022-08-15] MEDS ORDERED: NALOXONE HCL (KLOXXADO) 8 MG SPRAY NS PRN (11:22)
[2022-08-15] MEDS ORDERED: AMMONIUM LACTATE 12% LOTION 225 GM BOTTLE TP PRN (11:22)
[2022-08-15] MEDS ORDERED: POLYETHYLENE GLYCOL (HEALTHYLAX) 3350 17 GM PACKET PO PRN (11:22)
[2022-08-15] MEDS ORDERED: IBUPROFEN 400 MG TABLET (FP) PO PRN (11:22)
[2022-08-15] MEDS ORDERED: IBUPROFEN 600 MG TABLET (FP) PO PRN (11:22)
[2022-08-15] MEDS ORDERED: MAGNESIUM HYDROX 2400MG/30ML ORAL SUSPENSION 30 ML CUP PO PRN (11:22)
[2022-08-15] MEDS ORDERED: MAG HYDROX/AL HYDROX/SIMETH 30 ML UNIT-DOSE CUP PO PRN (11:22)
[2022-08-15] MEDS ORDERED: guaiFENesin 600 MG TABLET.ER (FP) PO PRN (11:22)
[2022-08-15] MEDS ORDERED: NICOTINE 10 MG CARTRIDGE (INHALER) IH PRN (11:22)
[2022-08-15 17:02] LABS: HEMATOCRIT 45.2 % (32.4-45.2); HEMOGLOBIN 15.3 GM/dL (10.7-15.3); MCH 30.5 pg (25.7-33.7); MCHC 33.9 g/dl (32.0-36.0); MEAN CELL VOLUME 90.2 fl (80-96); MEAN PLT VOLUME 9.7 fl (7.5-11.1); PLATELET COUNT 203 10^3/uL (134-434); RBC 5.02 M/mm3 (3.60-5.2); RDW 15.2 % (11.6-15.6); WHITE BLOOD COUNT 4.2 K/mm3 (4.0-10.0)
[2022-08-15 17:04] LABS: ALBUMIN 3.6 g/dl (3.4-5.0); BLOOD UREA NITROGEN 13.5 mg/dL (7-18); CALCIUM 9.7 mg/dL (8.5-10.1)
[2022-08-15 17:07] LABS: CREATININE 1.2 mg/dL (0.55-1.3)
[2022-08-15 17:09] LABS: BILIRUBIN,TOTAL 0.6 mg/dL (0.2-1)
[2022-08-15 17:29] LABS: SYPHILIS W/ RPR CONF NON-REACTIVE (NONREACTIVE)
[2022-08-15 18:45] VITALS: RESP 18
[2022-08-15] MEDS: BENZOCAINE/MENTHOL (CHLORASEPTIC ) LOZENGE MM PRN (18:50)
[2022-08-15] MEDS: NICOTINE 14 MG/24 HOURS TOPICAL PATCH TD SCH (18:50)
[2022-08-15] MEDS: PRENATAL VITAMINS W/ FOLIC ACID TABLET (FP) PO SCH (18:51)
[2022-08-15] MEDS: hydrOXYzine PAMOATE 25 MG CAPSULE (FP) PO PRN (20:05)
[2022-08-15] MEDS: MELATONIN 5 MG TABLETS PO SCH (22:09)
[2022-08-15] MEDS: THIAMINE HCL 100 MG TABLET (FP) PO SCH (22:09)
[2022-08-16] MEDS: BENZOCAINE/MENTHOL (CHLORASEPTIC ) LOZENGE MM PRN ×4 (00:14→22:11)
[2022-08-16] MEDS: hydrOXYzine PAMOATE 25 MG CAPSULE (FP) PO PRN ×2 (03:58→22:07)
[2022-08-16] MEDS ORDERED: ASPIRIN 81 MG CHEWABLE TABLETS PO SCH (10:00)
[2022-08-16] MEDS ORDERED: ABACAVIR/DOLUTEGRAVIR/LAMIVUDI (TRIUMEQ) TABLET PO SCH (10:00)
[2022-08-16] MEDS ORDERED: CALCIUM 500MG/VIT-D 200 UNITS COMBO TABLET (FP) PO SCH (10:00)
[2022-08-16] MEDS: PRENATAL VITAMINS W/ FOLIC ACID TABLET (FP) PO SCH (10:03)
[2022-08-16] MEDS: NICOTINE 14 MG/24 HOURS TOPICAL PATCH TD SCH (10:04)
[2022-08-16] MEDS: ALBUTEROL SO4 HFA INHALER IH PRN ×2 (15:22→22:08)
[2022-08-16] MEDS: MELATONIN 5 MG TABLETS PO SCH (22:07)
[2022-08-16] MEDS: THIAMINE HCL 100 MG TABLET (FP) PO SCH (22:07)
[2022-08-16 22:32] VITALS: BP 163/95; PULSE 55; TEMP 97.7
== END 2022-08-16 00:15 | disposition short-term general hospital (02) | DRG 772 ==
LOC: YASAS 10:26 → Y5N 18:05
PROVIDERS: ADMIT Allergy & Immunology; ATTEND Psychiatry & Neurology Pain Medicine
PROC: HZ42ZZZ Group Counseling for Substance Abuse Treatment, Cognitive-Behavioral (ICD-10-PCS; principal; 2022-08-15)
DX: F10.20 Alcohol dependence, uncomplicated (principal); F14.20 Cocaine dependence, uncomplicated; F17.210 Nicotine dependence, cigarettes, uncomplicated; Z21 Asymptomatic human immunodeficiency virus [HIV] infection status; I42.2 Other hypertrophic cardiomyopathy; I10 Essential (primary) hypertension; K74.60 Unspecified cirrhosis of liver; G47.00 Insomnia, unspecified; K21.9 Gastro-esophageal reflux disease without esophagitis; R07.9 Chest pain, unspecified; R94.31 Abnormal electrocardiogram [ECG] [EKG]; Z86.19 Personal history of other infectious and parasitic diseases
CPT/HCPCS: 26055; 36415; 80053; 85027; 86780; 86803; 87522; 93005; 93010; C9803-CS; U0003; U0005

== ENCOUNTER 2022-08-16 23:59 | Observation (INO) | payer OTHER ==
[2022-08-17 00:08] VITALS: BMI 17.0
[2022-08-17] MEDS ORDERED: ASPIRIN 81 MG CHEWABLE TABLETS PO ONE (00:27)
[2022-08-17] MEDS ORDERED: ASPIRIN 81 MG CHEWABLE TABLETS ONE (00:35)
[2022-08-17] MEDS ORDERED: NITROGLYCERIN SUBLINGUAL 1/150 0.4 MG TAB SL ONE (00:47)
[2022-08-17] MEDS ORDERED: morphine CARPU-JECT 2 MG/1 ML DISP.SYRIN IVPUSH ONE (00:50)
[2022-08-17 00:56] LABS: BASO % 0.7 % (0-2.0); EOS % 1.8 % (0-4.5); HEMOGLOBIN 14.8 GM/dL (10.7-15.3); LYMPH % 25.2 % (8-40); MCH 30.2 pg (25.7-33.7); MCHC 33.7 g/dl (32.0-36.0); MEAN CELL VOLUME 89.6 fl (80-96); MEAN PLT VOLUME 9.1 fl (7.5-11.1); NEUT % 63.3 % (42.8-82.8); PLATELET COUNT 197 10^3/uL (134-434); RBC 4.91 M/mm3 (3.60-5.2); RDW 15.1 % (11.6-15.6)
[2022-08-17 01:08] LABS: INR 1.09 (0.83-1.09); PROTHROMBIN TIME (PATIENT) 12.6 SEC (9.7-13.0)
[2022-08-17 01:10] LABS: ACTIVATED PTT 32.5 SECONDS (25.2-36.5)
[2022-08-17 01:14] LABS: CHLORIDE 106 mmol/L (98-107); SODIUM 138 mmol/L (136-145)
[2022-08-17 01:16] LABS: BLOOD UREA NITROGEN 16.7 mg/dL (7-18); CALCIUM 9.4 mg/dL (8.5-10.1)
[2022-08-17 01:17] LABS: ALBUMIN 3.4 g/dl (3.4-5.0); ANION GAP 5 MMOL/L (8-16); CO2 27 mmol/L (21-32); GLUCOSE,RANDOM 130 mg/dL (74-106)
[2022-08-17 01:24] LABS: ALK PHOS 101 U/L (45-117); BILIRUBIN,TOTAL 0.2 mg/dL (0.2-1); CREATININE 0.9 mg/dL (0.55-1.3); N-TERMINAL BNP 17159.1 pg/ml (5-125); SGOT/AST 41 U/L (15-37); SGPT/ALT 25 U/L (13-61); TOT PROT 7.5 g/dl (6.4-8.2)
[2022-08-17] MEDS ORDERED: NITROGLYCERIN SUBLINGUAL 1/150 0.4 MG TAB ONE (01:31)
[2022-08-17] MEDS ORDERED: ACETAMINOPHEN 325 MG TABLET (FP) PO ONE (03:40)
[2022-08-17] MEDS ORDERED: MELATONIN 5 MG TABLETS PO ONE (03:41)
[2022-08-17] MEDS ORDERED: ACETAMINOPHEN 325 MG TABLET (FP) ONE (03:46)
[2022-08-17] MEDS ORDERED: MELATONIN 5 MG TABLETS ONE (03:46)
[2022-08-17] MEDS ORDERED: KCL 10 MEQ IVPB 10 MEQ/100 ML INFUS.BAG IVPB SCH (09:00)
[2022-08-17] MEDS: LOSARTAN POTASSIUM 25 MG TABLET PO SCH (10:34)
[2022-08-17] MEDS: ASPIRIN 81 MG CHEWABLE TABLETS PO SCH (10:34)
[2022-08-17] MEDS: ENOXAPARIN NA (PORCINE) 40 MG/0.4 ML DISP.SYRIN SQ SCH (10:39)
[2022-08-17 11:25] LABS: LDL CHOLESTEROL (ONLY SJRH) 47 mg/dL (5-100)
[2022-08-17 11:26] LABS: CHOLESTEROL 98 mg/dL (50-200)
[2022-08-17 11:27] LABS: HDL CHOLESTEROL 43 mg/dL (40-60)
[2022-08-17] MEDS: ABACAVIR/DOLUTEGRAVIR/LAMIVUDI (TRIUMEQ) TABLET PO SCH (12:28)
[2022-08-17] MEDS: BENZOCAINE/MENTHOL 1 EACH LOZENGE MM PRN ×2 (17:10→22:26)
[2022-08-17] MEDS ORDERED: ACETAMINOPHEN 1000 MG/100 ML BAG IVPB ONE (19:55)
[2022-08-17] MEDS: CARVEDILOL 25 MG TABLET (FP) PO SCH (21:52)
[2022-08-17] MEDS ORDERED: MELATONIN 5 MG TABLETS PO SCH (22:00)
[2022-08-17] MEDS ORDERED: CARVEDILOL 12.5 MG TABLET (FP) PO SCH (22:00)
[2022-08-17] MEDS: ALBUTEROL SO4 0.083% IH SOL 2.5 MG/3 ML VIAL.NEB. NEB PRN (22:16)
[2022-08-18] MEDS: BENZOCAINE/MENTHOL 1 EACH LOZENGE MM PRN ×2 (02:46→09:49)
[2022-08-18] MEDS: ALBUTEROL SO4 0.083% IH SOL 2.5 MG/3 ML VIAL.NEB. NEB PRN ×2 (03:28→13:30)
[2022-08-18 07:47] LABS: HEMATOCRIT 41.3 % (32.4-45.2); HEMOGLOBIN 13.8 GM/dL (10.7-15.3); MCH 30.2 pg (25.7-33.7); MCHC 33.5 g/dl (32.0-36.0); MEAN CELL VOLUME 90.3 fl (80-96); MEAN PLT VOLUME 9.2 fl (7.5-11.1); PLATELET COUNT 199 10^3/uL (134-434); RBC 4.57 M/mm3 (3.60-5.2); RDW 14.9 % (11.6-15.6); WHITE BLOOD COUNT 4.4 K/mm3 (4.0-10.0)
[2022-08-18 08:10] LABS: BLOOD UREA NITROGEN 15.5 mg/dL (7-18); CALCIUM 8.9 mg/dL (8.5-10.1); MAGNESIUM 2.4 mg/dL (1.8-2.4)
[2022-08-18 09:46] VITALS: RESP 20
[2022-08-18] MEDS: ASPIRIN 81 MG CHEWABLE TABLETS PO SCH (09:48)
[2022-08-18] MEDS: LOSARTAN POTASSIUM 25 MG TABLET PO SCH (09:48)
[2022-08-18] MEDS: ENOXAPARIN NA (PORCINE) 40 MG/0.4 ML DISP.SYRIN SQ SCH (09:48)
[2022-08-18] MEDS: CARVEDILOL 25 MG TABLET (FP) PO SCH (09:48)
[2022-08-18] MEDS: ABACAVIR/DOLUTEGRAVIR/LAMIVUDI (TRIUMEQ) TABLET PO SCH (09:48)
[2022-08-18 16:06] VITALS: BP 172/114; PULSE 54; TEMP 98.5
[2022-08-18] MEDS ORDERED: LOSARTAN POTASSIUM 50 MG TABLET PO ONE (17:43)
== END 2022-08-18 18:29 | disposition other institution (70) ==
LOC: JER 23:59 → JERBED 08-17 04:01 → J4W 08-17 05:40
PROVIDERS: ADMIT Internal Medicine; ATTEND Internal Medicine
PROC: 3E033NZ Introduction of Analgesics, Hypnotics, Sedatives into Peripheral Vein, Percutaneous Approach (ICD-10-PCS; principal; 2022-08-17)
PROC: 3E0F7GC Introduction of Other Therapeutic Substance into Respiratory Tract, Via Natural or Artificial Opening (ICD-10-PCS; 2022-08-17)
PROC: 3E023GC Introduction of Other Therapeutic Substance into Muscle, Percutaneous Approach (ICD-10-PCS; 2022-08-17)
PROC: 3E033NZ Introduction of Analgesics, Hypnotics, Sedatives into Peripheral Vein, Percutaneous Approach (ICD-10-PCS; 2022-08-17)
DX: R20.0 Anesthesia of skin (principal); R00.1 Bradycardia, unspecified; F10.10 Alcohol abuse, uncomplicated; F14.10 Cocaine abuse, uncomplicated; B20 Human immunodeficiency virus [HIV] disease; I10 Essential (primary) hypertension; R77.8 Other specified abnormalities of plasma proteins
CPT/HCPCS: 0241U-QW; 36415; 71045-TC-FY; 80048; 80053; 80061; 82550; 82553; 83735; 83880; 84439; 84443; 84484; 85025; 85027; 85610; 85730; 93005; 93010; 93306-TC; 94640; 96372; 96374; 96375; 99285-25; G0378

== ENCOUNTER 2022-08-18 19:32 | Inpatient (IN) | payer OTHER ==
[2022-08-18 20:40] VITALS: BMI 18.4
[2022-08-18] MEDS ORDERED: AMMONIUM LACTATE 12% LOTION 225 GM BOTTLE TP PRN (21:33)
[2022-08-18] MEDS ORDERED: COLLOIDAL OATMEAL 1 BAR EACH TP PRN (21:33)
[2022-08-18] MEDS ORDERED: MAGNESIUM HYDROX 2400MG/30ML ORAL SUSPENSION 30 ML CUP PO PRN (21:33)
[2022-08-18] MEDS ORDERED: BENZONATATE 200 MG CAPSULE PO PRN (21:33)
[2022-08-18] MEDS ORDERED: MAG HYDROX/AL HYDROX/SIMETH 30 ML UNIT-DOSE CUP PO PRN (21:33)
[2022-08-18] MEDS ORDERED: LOPERAMIDE HCL 2 MG CAPSULE PO PRN (21:33)
[2022-08-18] MEDS ORDERED: NALOXONE HCL (KLOXXADO) 8 MG SPRAY NS PRN (21:33)
[2022-08-18] MEDS ORDERED: NALOXONE HCL 0.4 MG/ML VIAL IM PRN (21:33)
[2022-08-18] MEDS ORDERED: IBUPROFEN 400 MG TABLET (FP) PO PRN (21:33)
[2022-08-18] MEDS ORDERED: IBUPROFEN 600 MG TABLET (FP) PO PRN (21:33)
[2022-08-18] MEDS ORDERED: POLYETHYLENE GLYCOL (HEALTHYLAX) 3350 17 GM PACKET PO PRN (21:33)
[2022-08-18] MEDS ORDERED: ACETAMINOPHEN 325 MG TABLET (FP) PO PRN (21:33)
[2022-08-18] MEDS ORDERED: MELATONIN 5 MG TABLETS PO SCH (22:00)
[2022-08-18] MEDS ORDERED: MELATONIN 5 MG TABLETS ONE (22:38)
[2022-08-18] MEDS: THIAMINE HCL 100 MG TABLET (FP) PO SCH (23:05)
[2022-08-18] MEDS ORDERED: LISINOPRIL 5 MG TABLET PO ONE (23:32)
[2022-08-18] MEDS: BENZOCAINE/MENTHOL (CHLORASEPTIC ) LOZENGE MM PRN (23:42)
[2022-08-19] MEDS: ALBUTEROL SO4 HFA INHALER IH PRN ×3 (00:07→20:09)
[2022-08-19] MEDS: LOSARTAN POTASSIUM 50 MG TABLET PO SCH (09:33)
[2022-08-19] MEDS: CARVEDILOL 25 MG TABLET (FP) PO SCH ×2 (09:33→21:38)
[2022-08-19] MEDS: ASPIRIN 81 MG CHEWABLE TABLETS PO SCH (09:33)
[2022-08-19] MEDS: PRENATAL VITAMINS W/ FOLIC ACID TABLET (FP) PO SCH (09:34)
[2022-08-19] MEDS ORDERED: FLUTICASONE PROP 0.05% 16 GM NASAL SPRAY NS SCH ×2 (10:00→22:00)
[2022-08-19] MEDS ORDERED: [UNRECOGNIZED DRUG - OTHER] PO SCH (10:00)
[2022-08-19] MEDS ORDERED: MULTIVITAMIN WITH IRON PO SCH (10:00)
[2022-08-19] MEDS: AMINO ACIDS/PROTEIN HYDROLYS 30 ML LIQUID.PKT PO SCH ×2 (10:20→21:38)
[2022-08-19] MEDS: BENZOCAINE/MENTHOL (CHLORASEPTIC ) LOZENGE MM PRN ×2 (10:27→22:59)
[2022-08-19] MEDS: MULTIVITAMINS (DAILY MVI) TABLET (FP) PO SCH (10:33)
[2022-08-19 11:39] LABS: EPI CELLS 24 /uL (0-25.1); HYALINE CASTS 0 /uL (0-3.1); URINE APPEARANCE CLEAR; URINE BACTERIA 76 /uL (0-1359); URINE BILIRUBIN NEGATIVE (NEGATIVE); URINE COLOR YELLOW; URINE GLUCOSE (UA) NEGATIVE (NEGATIVE); URINE KETONE NEGATIVE (NEGATIVE); URINE LEUK ESTERASE 2+ (NEGATIVE); URINE NITRITE NEGATIVE (NEGATIVE); URINE PROTEIN TRACE (NEGATIVE); URINE RBC 4 /uL (0-23.9); URINE UROBILINOGEN 0.2 mg/dL (0.2-1.0); URINE WBC 57 /uL (0-25.8)
[2022-08-19 11:57] LABS: POTASSIUM 4.2 mmol/L (3.5-5.1)
[2022-08-19 11:59] LABS: HEMATOCRIT 39.8 % (32.4-45.2); HEMOGLOBIN 13.5 GM/dL (10.7-15.3); MCH 30.3 pg (25.7-33.7); MCHC 33.8 g/dl (32.0-36.0); MEAN CELL VOLUME 89.8 fl (80-96); MEAN PLT VOLUME 9.4 fl (7.5-11.1); PLATELET COUNT 201 10^3/uL (134-434); RBC 4.43 M/mm3 (3.60-5.2); RDW 14.8 % (11.6-15.6); WHITE BLOOD COUNT 4.4 K/mm3 (4.0-10.0)
[2022-08-19 12:10] LABS: CALCIUM 8.7 mg/dL (8.5-10.1)
[2022-08-19 12:11] LABS: ALBUMIN 3.2 g/dl (3.4-5.0); BLOOD UREA NITROGEN 22.5 mg/dL (7-18)
[2022-08-19 12:16] LABS: BILIRUBIN,TOTAL 0.6 mg/dL (0.2-1); TOT PROT 7.2 g/dl (6.4-8.2)
[2022-08-19] MEDS: ABACAVIR/DOLUTEGRAVIR/LAMIVUDI (TRIUMEQ) TABLET PO SCH (13:27)
[2022-08-19] MEDS: hydrOXYzine PAMOATE 25 MG CAPSULE (FP) PO PRN (14:52)
[2022-08-19] MEDS: NICOTINE POLACRILEX 2 MG GUM BUC PRN (16:02)
[2022-08-19] MEDS: THIAMINE HCL 100 MG TABLET (FP) PO SCH (21:38)
[2022-08-19] MEDS ORDERED: traZODone HCL 50 MG TABLET (FP) PO PRN (22:00)
[2022-08-19] MEDS: SIMETHICONE 80 MG TAB.CHEW (FP) PO PRN (22:55)
[2022-08-20] MEDS: ALBUTEROL SO4 HFA INHALER IH PRN ×3 (02:15→21:42)
[2022-08-20] MEDS: hydrOXYzine PAMOATE 25 MG CAPSULE (FP) PO PRN (02:15)
[2022-08-20] MEDS: guaiFENesin 600 MG TABLET.ER (FP) PO PRN ×2 (07:12→21:52)
[2022-08-20] MEDS: CARVEDILOL 25 MG TABLET (FP) PO SCH ×3 (07:12→21:41)
[2022-08-20] MEDS: ASPIRIN 81 MG CHEWABLE TABLETS PO SCH (10:10)
[2022-08-20] MEDS: PRENATAL VITAMINS W/ FOLIC ACID TABLET (FP) PO SCH (10:10)
[2022-08-20] MEDS: LOSARTAN POTASSIUM 50 MG TABLET PO SCH (10:11)
[2022-08-20] MEDS: AMINO ACIDS/PROTEIN HYDROLYS 30 ML LIQUID.PKT PO SCH ×2 (10:12→21:52)
[2022-08-20] MEDS: ABACAVIR/DOLUTEGRAVIR/LAMIVUDI (TRIUMEQ) TABLET PO SCH (10:13)
[2022-08-20] MEDS: MULTIVITAMINS (DAILY MVI) TABLET (FP) PO SCH (10:23)
[2022-08-20] MEDS: NAPROXEN 500 MG TABLET PO PRN (13:17)
[2022-08-20] MEDS: CALCIUM 500MG/VIT-D 200 UNITS COMBO TABLET (FP) PO SCH (13:17)
[2022-08-20] MEDS: NICOTINE POLACRILEX 2 MG GUM BUC PRN ×2 (13:19→19:41)
[2022-08-20] MEDS: BENZOCAINE/MENTHOL (CHLORASEPTIC ) LOZENGE MM PRN ×2 (13:20→21:56)
[2022-08-20] MEDS ORDERED: FLUTICASONE PROP 0.05% 16 GM NASAL SPRAY NS PRN ×2 (16:03→20:58)
[2022-08-20] MEDS: traZODone HCL 50 MG TABLET (FP) PO PRN (21:41)
[2022-08-20] MEDS: THIAMINE HCL 100 MG TABLET (FP) PO SCH (21:41)
[2022-08-21] MEDS: BENZOCAINE/MENTHOL (CHLORASEPTIC ) LOZENGE MM PRN ×2 (02:29→13:49)
[2022-08-21] MEDS: CALCIUM 500MG/VIT-D 200 UNITS COMBO TABLET (FP) PO SCH (10:04)
[2022-08-21] MEDS: LOSARTAN POTASSIUM 50 MG TABLET PO SCH (10:04)
[2022-08-21] MEDS: CARVEDILOL 25 MG TABLET (FP) PO SCH ×2 (10:04→21:54)
[2022-08-21] MEDS: ASPIRIN 81 MG CHEWABLE TABLETS PO SCH (10:04)
[2022-08-21] MEDS: ABACAVIR/DOLUTEGRAVIR/LAMIVUDI (TRIUMEQ) TABLET PO SCH (10:05)
[2022-08-21] MEDS: HYDROCHLOROTHIAZIDE 12.5 MG CAPSULE (FP) PO SCH (10:07)
[2022-08-21] MEDS: AMINO ACIDS/PROTEIN HYDROLYS 30 ML LIQUID.PKT PO SCH ×2 (10:07→21:54)
[2022-08-21] MEDS: FLUTICASONE PROP 0.05% 16 GM NASAL SPRAY NS SCH ×2 (10:08→22:29)
[2022-08-21] MEDS: MULTIVITAMINS (DAILY MVI) TABLET (FP) PO SCH (10:13)
[2022-08-21] MEDS: SODIUM CHLORIDE NASAL SPRAY 44 ML BOTTLE NS PRN ×2 (13:48→18:44)
[2022-08-21] MEDS: THIAMINE HCL 100 MG TABLET (FP) PO SCH (21:54)
[2022-08-21] MEDS: traZODone HCL 50 MG TABLET (FP) PO PRN (21:54)
[2022-08-21] MEDS: guaiFENesin 600 MG TABLET.ER (FP) PO SCH (22:35)
[2022-08-22] MEDS: BENZOCAINE/MENTHOL (CHLORASEPTIC ) LOZENGE MM PRN ×2 (02:11→22:12)
[2022-08-22] MEDS: SODIUM CHLORIDE NASAL SPRAY 44 ML BOTTLE NS PRN ×2 (07:09→19:02)
[2022-08-22] MEDS: HYDROCHLOROTHIAZIDE 12.5 MG CAPSULE (FP) PO SCH (10:24)
[2022-08-22] MEDS: CALCIUM 500MG/VIT-D 200 UNITS COMBO TABLET (FP) PO SCH (10:24)
[2022-08-22] MEDS: CARVEDILOL 25 MG TABLET (FP) PO SCH ×2 (10:24→21:36)
[2022-08-22] MEDS: ASPIRIN 81 MG CHEWABLE TABLETS PO SCH (10:25)
[2022-08-22] MEDS: guaiFENesin 600 MG TABLET.ER (FP) PO SCH ×2 (10:25→21:37)
[2022-08-22] MEDS: LOSARTAN POTASSIUM 50 MG TABLET PO SCH (10:25)
[2022-08-22] MEDS: MULTIVITAMINS (DAILY MVI) TABLET (FP) PO SCH (10:26)
[2022-08-22] MEDS: ABACAVIR/DOLUTEGRAVIR/LAMIVUDI (TRIUMEQ) TABLET PO SCH (10:28)
[2022-08-22] MEDS: FLUTICASONE PROP 0.05% 16 GM NASAL SPRAY NS SCH ×2 (10:28→22:12)
[2022-08-22] MEDS: AMINO ACIDS/PROTEIN HYDROLYS 30 ML LIQUID.PKT PO SCH ×2 (10:29→21:36)
[2022-08-22] MEDS: SIMETHICONE 80 MG TAB.CHEW (FP) PO PRN (19:03)
[2022-08-22] MEDS: NAPROXEN 500 MG TABLET PO PRN (19:12)
[2022-08-22] MEDS: THIAMINE HCL 100 MG TABLET (FP) PO SCH (21:37)
[2022-08-22] MEDS: traZODone HCL 50 MG TABLET (FP) PO PRN (21:37)
[2022-08-23] MEDS: ALBUTEROL SO4 HFA INHALER IH PRN (03:53)
[2022-08-23] MEDS: BENZOCAINE/MENTHOL (CHLORASEPTIC ) LOZENGE MM PRN ×2 (03:55→23:45)
[2022-08-23] MEDS: HYDROCHLOROTHIAZIDE 12.5 MG CAPSULE (FP) PO SCH (09:57)
[2022-08-23] MEDS: CALCIUM 500MG/VIT-D 200 UNITS COMBO TABLET (FP) PO SCH (09:57)
[2022-08-23] MEDS: ASPIRIN 81 MG CHEWABLE TABLETS PO SCH (09:57)
[2022-08-23] MEDS: MULTIVITAMINS (DAILY MVI) TABLET (FP) PO SCH (09:57)
[2022-08-23] MEDS: guaiFENesin 600 MG TABLET.ER (FP) PO SCH ×2 (09:57→21:15)
[2022-08-23] MEDS: CARVEDILOL 25 MG TABLET (FP) PO SCH ×2 (09:57→21:15)
[2022-08-23] MEDS: AMINO ACIDS/PROTEIN HYDROLYS 30 ML LIQUID.PKT PO SCH ×2 (09:57→21:14)
[2022-08-23] MEDS: LOSARTAN POTASSIUM 50 MG TABLET PO SCH (09:58)
[2022-08-23] MEDS: FLUTICASONE PROP 0.05% 16 GM NASAL SPRAY NS SCH ×2 (09:59→21:15)
[2022-08-23] MEDS: ABACAVIR/DOLUTEGRAVIR/LAMIVUDI (TRIUMEQ) TABLET PO SCH (10:02)
[2022-08-23] MEDS: SODIUM CHLORIDE NASAL SPRAY 44 ML BOTTLE NS PRN ×3 (10:04→21:15)
[2022-08-23] MEDS: SIMETHICONE 80 MG TAB.CHEW (FP) PO PRN (12:50)
[2022-08-23] MEDS: NICOTINE POLACRILEX 2 MG GUM BUC PRN (14:38)
[2022-08-23] MEDS: THIAMINE HCL 100 MG TABLET (FP) PO SCH (21:12)
[2022-08-23] MEDS: hydrOXYzine PAMOATE 25 MG CAPSULE (FP) PO PRN (23:36)
[2022-08-23] MEDS: traZODone HCL 50 MG TABLET (FP) PO PRN (23:36)
[2022-08-24] MEDS: hydrOXYzine PAMOATE 25 MG CAPSULE (FP) PO PRN (07:04)
[2022-08-24] MEDS: SODIUM CHLORIDE NASAL SPRAY 44 ML BOTTLE NS PRN (07:05)
[2022-08-24] MEDS: ALBUTEROL SO4 HFA INHALER IH PRN ×2 (08:14→09:15)
[2022-08-24] MEDS: ASPIRIN 81 MG CHEWABLE TABLETS PO SCH (09:12)
[2022-08-24] MEDS: HYDROCHLOROTHIAZIDE 12.5 MG CAPSULE (FP) PO SCH (09:12)
[2022-08-24] MEDS: guaiFENesin 600 MG TABLET.ER (FP) PO SCH ×2 (09:12→21:22)
[2022-08-24] MEDS: CALCIUM 500MG/VIT-D 200 UNITS COMBO TABLET (FP) PO SCH (09:12)
[2022-08-24] MEDS: FLUTICASONE PROP 0.05% 16 GM NASAL SPRAY NS SCH ×3 (09:12→22:06)
[2022-08-24] MEDS: CARVEDILOL 25 MG TABLET (FP) PO SCH ×2 (09:12→21:22)
[2022-08-24] MEDS: ABACAVIR/DOLUTEGRAVIR/LAMIVUDI (TRIUMEQ) TABLET PO SCH (09:13)
[2022-08-24] MEDS: LOSARTAN POTASSIUM 50 MG TABLET PO SCH (09:13)
[2022-08-24] MEDS: AMINO ACIDS/PROTEIN HYDROLYS 30 ML LIQUID.PKT PO SCH ×2 (09:14→21:29)
[2022-08-24] MEDS: MULTIVITAMINS (DAILY MVI) TABLET (FP) PO SCH (09:14)
[2022-08-24] MEDS: THIAMINE HCL 100 MG TABLET (FP) PO SCH (21:22)
[2022-08-24] MEDS: BENZOCAINE/MENTHOL (CHLORASEPTIC ) LOZENGE MM PRN (23:25)
[2022-08-24] MEDS: traZODone HCL 50 MG TABLET (FP) PO PRN (23:26)
[2022-08-25] MEDS: BENZOCAINE/MENTHOL (CHLORASEPTIC ) LOZENGE MM PRN ×2 (05:35→23:19)
[2022-08-25] MEDS: ALBUTEROL SO4 HFA INHALER IH PRN ×3 (05:55→17:08)
[2022-08-25 07:33] VITALS: RESP 18
[2022-08-25] MEDS: AMINO ACIDS/PROTEIN HYDROLYS 30 ML LIQUID.PKT PO SCH ×2 (09:43→23:01)
[2022-08-25] MEDS: guaiFENesin 600 MG TABLET.ER (FP) PO SCH ×2 (09:44→21:42)
[2022-08-25] MEDS: FLUTICASONE PROP 0.05% 16 GM NASAL SPRAY NS SCH ×2 (09:44→23:05)
[2022-08-25] MEDS: LOSARTAN POTASSIUM 50 MG TABLET PO SCH (09:44)
[2022-08-25] MEDS: CALCIUM 500MG/VIT-D 200 UNITS COMBO TABLET (FP) PO SCH (09:44)
[2022-08-25] MEDS: HYDROCHLOROTHIAZIDE 12.5 MG CAPSULE (FP) PO SCH (09:44)
[2022-08-25] MEDS: CARVEDILOL 25 MG TABLET (FP) PO SCH ×2 (09:44→21:41)
[2022-08-25] MEDS: MULTIVITAMINS (DAILY MVI) TABLET (FP) PO SCH (09:44)
[2022-08-25] MEDS: ASPIRIN 81 MG CHEWABLE TABLETS PO SCH (09:44)
[2022-08-25] MEDS: ABACAVIR/DOLUTEGRAVIR/LAMIVUDI (TRIUMEQ) TABLET PO SCH (09:45)
[2022-08-25] MEDS: CARBAMIDE PEROXIDE 6.5% OTIC 15 ML BOTTLE AU SCH ×2 (10:31→23:01)
[2022-08-25] MEDS: SIMETHICONE 80 MG TAB.CHEW (FP) PO PRN (10:53)
[2022-08-25] MEDS: THIAMINE HCL 100 MG TABLET (FP) PO SCH (21:41)
[2022-08-25] MEDS: traZODone HCL 50 MG TABLET (FP) PO PRN (23:00)
[2022-08-25] MEDS: ALBUTEROL SO4 2.5/IPRATROPIUM 0.5 INH SOL 3 ML VIAL.NEB. NEB PRN (23:06)
[2022-08-26] MEDS: SODIUM CHLORIDE NASAL SPRAY 44 ML BOTTLE NS PRN ×2 (01:00→13:22)
[2022-08-26] MEDS: ALBUTEROL SO4 HFA INHALER IH PRN ×2 (07:05→13:22)
[2022-08-26 07:22] VITALS: TEMP 97.7
[2022-08-26] MEDS: guaiFENesin 600 MG TABLET.ER (FP) PO SCH ×2 (10:23→21:28)
[2022-08-26] MEDS: CALCIUM 500MG/VIT-D 200 UNITS COMBO TABLET (FP) PO SCH (10:23)
[2022-08-26] MEDS: LOSARTAN POTASSIUM 50 MG TABLET PO SCH (10:23)
[2022-08-26] MEDS: CARVEDILOL 25 MG TABLET (FP) PO SCH ×2 (10:23→22:51)
[2022-08-26] MEDS: ASPIRIN 81 MG CHEWABLE TABLETS PO SCH (10:24)
[2022-08-26] MEDS: HYDROCHLOROTHIAZIDE 12.5 MG CAPSULE (FP) PO SCH (10:24)
[2022-08-26] MEDS: MULTIVITAMINS (DAILY MVI) TABLET (FP) PO SCH (10:24)
[2022-08-26] MEDS: AMINO ACIDS/PROTEIN HYDROLYS 30 ML LIQUID.PKT PO SCH ×2 (10:25→21:28)
[2022-08-26] MEDS: CARBAMIDE PEROXIDE 6.5% OTIC 15 ML BOTTLE AU SCH ×2 (10:27→22:54)
[2022-08-26] MEDS: FLUTICASONE PROP 0.05% 16 GM NASAL SPRAY NS SCH ×2 (10:27→21:30)
[2022-08-26] MEDS: ABACAVIR/DOLUTEGRAVIR/LAMIVUDI (TRIUMEQ) TABLET PO SCH (10:28)
[2022-08-26] MEDS: ALBUTEROL SO4 2.5/IPRATROPIUM 0.5 INH SOL 3 ML VIAL.NEB. NEB PRN ×2 (10:29→22:51)
[2022-08-26] MEDS: BACITRACIN/POLYMYXIN B SULFATE 15 GM TUBE TP SCH (16:10)
[2022-08-26] MEDS: NICOTINE POLACRILEX 2 MG GUM BUC PRN (18:34)
[2022-08-26] MEDS ORDERED: traZODone HCL 50 MG TABLET (FP) PO PRN (22:00)
[2022-08-27] MEDS: THIAMINE HCL 100 MG TABLET (FP) PO SCH (00:03)
[2022-08-27] MEDS: BACITRACIN/POLYMYXIN B SULFATE 15 GM TUBE TP SCH (00:03)
[2022-08-27] MEDS: ALBUTEROL SO4 HFA INHALER IH PRN (00:41)
[2022-08-27] MEDS: BENZOCAINE/MENTHOL (CHLORASEPTIC ) LOZENGE MM PRN (00:46)
[2022-08-27 01:11] VITALS: BP 140/90; PULSE 63
[2022-08-27] MEDS: SODIUM CHLORIDE NASAL SPRAY 44 ML BOTTLE NS PRN (02:06)
== END 2022-08-27 11:33 | disposition short-term general hospital (02) | DRG 772 ==
LOC: YASAS 19:32 → Y5N 22:41
PROVIDERS: ADMIT Allergy & Immunology; ATTEND Psychiatry & Neurology Pain Medicine
PROC: HZ42ZZZ Group Counseling for Substance Abuse Treatment, Cognitive-Behavioral (ICD-10-PCS; principal; 2022-08-18)
DX: F10.20 Alcohol dependence, uncomplicated (principal); F14.20 Cocaine dependence, uncomplicated; F17.210 Nicotine dependence, cigarettes, uncomplicated; B20 Human immunodeficiency virus [HIV] disease; I10 Essential (primary) hypertension; J30.9 Allergic rhinitis, unspecified; L73.2 Hidradenitis suppurativa; R06.00 Dyspnea, unspecified; R07.9 Chest pain, unspecified; R94.31 Abnormal electrocardiogram [ECG] [EKG]; R60.0 Localized edema; Z86.19 Personal history of other infectious and parasitic diseases
CPT/HCPCS: 26055; 36415; 80053; 81003; 83036; 85027; 86780; 93005; 93010; 94640; C9803-CS; U0003; U0005

== ENCOUNTER 2022-08-27 02:46 | Observation (INO) | payer OTHER ==
[2022-08-27 03:47] LABS: EOS % 1.7 % (0-4.5); HEMATOCRIT 39.1 % (32.4-45.2); LYMPH % 26.3 % (8-40); MCH 29.7 pg (25.7-33.7); MCHC 33.2 g/dl (32.0-36.0); MEAN CELL VOLUME 89.2 fl (80-96); MEAN PLT VOLUME 8.9 fl (7.5-11.1); MONO % 11.2 % (3.8-10.2); NEUT % 59.8 % (42.8-82.8); PLATELET COUNT 202 10^3/uL (134-434); RBC 4.38 M/mm3 (3.60-5.2); RDW 14.6 % (11.6-15.6); WHITE BLOOD COUNT 4.5 K/mm3 (4.0-10.0)
[2022-08-27 04:39] LABS: POTASSIUM 3.9 mmol/L (3.5-5.1)
[2022-08-27 04:41] LABS: ALBUMIN 3.3 g/dl (3.4-5.0); BLOOD UREA NITROGEN 31.4 mg/dL (7-18); CALCIUM 8.9 mg/dL (8.5-10.1)
[2022-08-27 04:45] LABS: CREATININE 1.1 mg/dL (0.55-1.3)
[2022-08-27 04:47] LABS: BILIRUBIN,TOTAL 0.3 mg/dL (0.2-1); TOT PROT 7.3 g/dl (6.4-8.2)
[2022-08-27 05:37] LABS: MAGNESIUM 2.1 mg/dL (1.8-2.4)
[2022-08-27] MEDS ORDERED: ACETAMINOPHEN 325 MG TABLET (FP) PO PRN (05:42)
[2022-08-27 05:45] LABS: N-TERMINAL BNP 7117.4 pg/ml (5-125)
[2022-08-27] MEDS ORDERED: ASPIRIN 81 MG CHEWABLE TABLETS PO ONE (05:50)
[2022-08-27] MEDS ORDERED: traZODone HCL 50 MG TABLET (FP) PO PRN (05:51)
[2022-08-27] MEDS ORDERED: FUROSEMIDE 40 MG/4 ML INJECTABLE VIAL IVPUSH ONE ×2 (05:51→07:41)
[2022-08-27] MEDS ORDERED: MAG HYDROX/AL HYDROX/SIMETH 30 ML UNIT-DOSE CUP PO PRN (05:53)
[2022-08-27] MEDS ORDERED: FUROSEMIDE 40 MG/4 ML INJECTABLE VIAL IVPUSH SCH (06:37)
[2022-08-27] MEDS ORDERED: FUROSEMIDE 40 MG/4 ML INJECTABLE VIAL ONE (07:49)
[2022-08-27] MEDS ORDERED: CARVEDILOL 25 MG TABLET (FP) PO SCH (10:00)
[2022-08-27] MEDS ORDERED: NIFEdipine E.R. 30 MG TABLET PO SCH (10:00)
[2022-08-27] MEDS ORDERED: ASPIRIN 81 MG CHEWABLE TABLETS PO SCH (10:00)
[2022-08-27] MEDS: ALBUTEROL SO4 HFA INHALER IH SCH ×4 (10:44→22:35)
[2022-08-27] MEDS: ENOXAPARIN NA (PORCINE) 40 MG/0.4 ML DISP.SYRIN SQ SCH (10:44)
[2022-08-27] MEDS: LOSARTAN POTASSIUM 50 MG TABLET PO SCH (10:45)
[2022-08-27] MEDS: ASPIRIN 81 MG CHEWABLE TABLETS PO SCH (10:45)
[2022-08-27] MEDS: PANTOPRAZOLE 20 MG TABLET PO SCH (10:46)
[2022-08-27] MEDS: CLINDAMYCIN PHOSPHATE 1% TOPICAL GEL 30 GM TUBE TP SCH ×2 (10:57→21:20)
[2022-08-27] MEDS: FUROSEMIDE 40 MG/4 ML INJECTABLE VIAL IVPUSH SCH (13:45)
[2022-08-27] MEDS: ABACAVIR/DOLUTEGRAVIR/LAMIVUDI (TRIUMEQ) TABLET PO SCH (13:45)
[2022-08-27] MEDS ORDERED: SIMETHICONE 80 MG TAB.CHEW (FP) PO PRN (16:30)
[2022-08-27] MEDS ORDERED: SODIUM CHLORIDE NASAL SPRAY 44 ML BOTTLE NS PRN (16:31)
[2022-08-27] MEDS ORDERED: MELATONIN 5 MG TABLETS PO ONE (20:52)
[2022-08-27] MEDS: CARVEDILOL 12.5 MG TABLET (FP) PO SCH (21:20)
[2022-08-27] MEDS ORDERED: CARVEDILOL 12.5 MG TABLET (FP) PO SCH (22:00)
[2022-08-28] MEDS: FUROSEMIDE 40 MG/4 ML INJECTABLE VIAL IVPUSH SCH ×2 (06:10→13:41)
[2022-08-28 07:07] LABS: HEMATOCRIT 42.6 % (32.4-45.2); HEMOGLOBIN 14.6 GM/dL (10.7-15.3); MCH 30.7 pg (25.7-33.7); MCHC 34.2 g/dl (32.0-36.0); MEAN CELL VOLUME 89.8 fl (80-96); MEAN PLT VOLUME 9.4 fl (7.5-11.1); PLATELET COUNT 230 10^3/uL (134-434); RBC 4.75 M/mm3 (3.60-5.2); RDW 14.1 % (11.6-15.6); WHITE BLOOD COUNT 4.7 K/mm3 (4.0-10.0)
[2022-08-28 07:26] LABS: POTASSIUM 3.8 mmol/L (3.5-5.1)
[2022-08-28 07:29] LABS: ALBUMIN 3.7 g/dl (3.4-5.0); BLOOD UREA NITROGEN 33.1 mg/dL (7-18); CALCIUM 9.1 mg/dL (8.5-10.1)
[2022-08-28 07:32] LABS: CREATININE 1.2 mg/dL (0.55-1.3)
[2022-08-28 07:34] LABS: BILIRUBIN,TOTAL 0.4 mg/dL (0.2-1); TOT PROT 8.4 g/dl (6.4-8.2)
[2022-08-28 07:38] LABS: CHOLESTEROL 117 mg/dL (50-200)
[2022-08-28 07:40] LABS: HDL CHOLESTEROL 43 mg/dL (40-60); LDL CHOLESTEROL (ONLY SJRH) 64 mg/dL (5-100)
[2022-08-28] MEDS: CARVEDILOL 12.5 MG TABLET (FP) PO SCH (08:30)
[2022-08-28] MEDS: LOSARTAN POTASSIUM 50 MG TABLET PO SCH (08:40)
[2022-08-28 08:42] LABS: MAGNESIUM 2.3 mg/dL (1.8-2.4)
[2022-08-28 08:46] LABS: PHOSPHOROUS 5.3 mg/dL (2.5-4.9)
[2022-08-28] MEDS ORDERED: REGADENOSON 0.4 MG/5 ML PRE-FILLED SYRINGE IVPUSH ONE ×2 (09:30→10:24)
[2022-08-28] MEDS: ASPIRIN 81 MG CHEWABLE TABLETS PO SCH (13:40)
[2022-08-28] MEDS: PANTOPRAZOLE 20 MG TABLET PO SCH (13:40)
[2022-08-28] MEDS: ENOXAPARIN NA (PORCINE) 40 MG/0.4 ML DISP.SYRIN SQ SCH (13:40)
[2022-08-28] MEDS: CLINDAMYCIN PHOSPHATE 1% TOPICAL GEL 30 GM TUBE TP SCH ×2 (13:41→21:12)
[2022-08-28] MEDS: ABACAVIR/DOLUTEGRAVIR/LAMIVUDI (TRIUMEQ) TABLET PO SCH (13:41)
[2022-08-28] MEDS: ALBUTEROL SO4 HFA INHALER IH SCH ×4 (13:41→21:12)
[2022-08-29] MEDS: FUROSEMIDE 40 MG/4 ML INJECTABLE VIAL IVPUSH SCH (06:06)
[2022-08-29 06:16] VITALS: TEMP 98.1
[2022-08-29 06:39] LABS: HEMATOCRIT 46.7 % (32.4-45.2); HEMOGLOBIN 16.2 GM/dL (10.7-15.3); MCH 31.2 pg (25.7-33.7); MCHC 34.6 g/dl (32.0-36.0); MEAN CELL VOLUME 90.2 fl (80-96); MEAN PLT VOLUME 9.6 fl (7.5-11.1); PLATELET COUNT 240 10^3/uL (134-434); RBC 5.18 M/mm3 (3.60-5.2); RDW 14.8 % (11.6-15.6); WHITE BLOOD COUNT 5.1 K/mm3 (4.0-10.0)
[2022-08-29 06:53] LABS: POTASSIUM 4.4 mmol/L (3.5-5.1)
[2022-08-29 06:57] LABS: ALBUMIN 3.7 g/dl (3.4-5.0); BLOOD UREA NITROGEN 37.2 mg/dL (7-18); CALCIUM 9.6 mg/dL (8.5-10.1); MAGNESIUM 2.5 mg/dL (1.8-2.4)
[2022-08-29 07:01] LABS: CREATININE 1.2 mg/dL (0.55-1.3); PHOSPHOROUS 5.2 mg/dL (2.5-4.9)
[2022-08-29 07:02] LABS: BILIRUBIN,TOTAL 0.6 mg/dL (0.2-1); TOT PROT 8.5 g/dl (6.4-8.2)
[2022-08-29] MEDS: PANTOPRAZOLE 20 MG TABLET PO SCH (09:07)
[2022-08-29] MEDS: ABACAVIR/DOLUTEGRAVIR/LAMIVUDI (TRIUMEQ) TABLET PO SCH (09:07)
[2022-08-29] MEDS: LOSARTAN POTASSIUM 50 MG TABLET PO SCH (09:07)
[2022-08-29] MEDS: ENOXAPARIN NA (PORCINE) 40 MG/0.4 ML DISP.SYRIN SQ SCH (09:07)
[2022-08-29] MEDS: ALBUTEROL SO4 HFA INHALER IH SCH ×2 (09:34→12:59)
[2022-08-29] MEDS: CLINDAMYCIN PHOSPHATE 1% TOPICAL GEL 30 GM TUBE TP SCH (09:34)
[2022-08-29] MEDS ORDERED: FUROSEMIDE 40 MG TABLET (FP) PO SCH (10:00)
[2022-08-29 11:13] VITALS: BP 121/90; PULSE 67; RESP 20
[2022-08-29 11:42] VITALS: BMI 18.0
[2022-08-29 11:57] LABS: COCAINE, UR NEGATIVE (NEGATIVE); OPIATES, URI NEGATIVE (NEGATIVE); URINE AMPHETAMINES NEGATIVE (NEGATIVE); URINE BARBITURATES NEGATIVE (NEGATIVE)
[2022-08-29 11:58] LABS: PHENCYCLIDINE,URINE NEGATIVE (NEGATIVE); URINE BENZODIAZEPINES NEGATIVE (NEGATIVE)
[2022-08-29 12:02] LABS: METHADONE, UR NEGATIVE (NEGATIVE)
== END 2022-08-29 17:02 | disposition home or self-care (01) ==
LOC: JER 02:46 → JERBED 05:48 → J2W 08:44
PROVIDERS: ADMIT Internal Medicine; ATTEND Internal Medicine
PROC: 3E033GC Introduction of Other Therapeutic Substance into Peripheral Vein, Percutaneous Approach (ICD-10-PCS; principal; 2022-08-27)
PROC: 3E013GC Introduction of Other Therapeutic Substance into Subcutaneous Tissue, Percutaneous Approach (ICD-10-PCS; 2022-08-27)
DX: R07.89 Other chest pain (principal); I42.1 Obstructive hypertrophic cardiomyopathy; F10.20 Alcohol dependence, uncomplicated; F14.20 Cocaine dependence, uncomplicated; I11.0 Hypertensive heart disease with heart failure; B20 Human immunodeficiency virus [HIV] disease; I50.9 Heart failure, unspecified; E78.5 Hyperlipidemia, unspecified; R60.0 Localized edema; I45.10 Unspecified right bundle-branch block; L73.2 Hidradenitis suppurativa; Z91.148 Patient's other noncompliance with medication regimen for other reason; R06.00 Dyspnea, unspecified; G47.00 Insomnia, unspecified
CPT/HCPCS: 0241U-QW; 36415; 71045-TC-FY; 78452-TC; 80053; 80061; 80307; 82550; 83735; 83880; 84100; 84484; 85025; 85027; 86359; 86360; 93005; 93010; 93017; 96372; 96374; 96375; 96376; 99285-25; A9502; G0378; J2785

== ENCOUNTER 2023-08-14 11:42 | Inpatient (IN) | payer OTHER ==
[2023-08-14 13:27] VITALS: BMI 17.2
[2023-08-14] MEDS ORDERED: guaiFENesin 600 MG TABLET.ER (FP) PO PRN (14:50)
[2023-08-14] MEDS ORDERED: POLYETHYLENE GLYCOL (HEALTHYLAX) 3350 17 GM PACKET PO PRN (14:50)
[2023-08-14] MEDS ORDERED: MAGNESIUM HYDROX 2400MG/30ML ORAL SUSPENSION 30 ML CUP PO PRN (14:50)
[2023-08-14] MEDS ORDERED: BENZONATATE 200 MG CAPSULE PO PRN (14:50)
[2023-08-14] MEDS ORDERED: NALOXONE HCL (KLOXXADO) 8 MG SPRAY NS PRN (14:50)
[2023-08-14] MEDS ORDERED: NALOXONE HCL 0.4 MG/ML VIAL IM PRN (14:50)
[2023-08-14] MEDS ORDERED: IBUPROFEN 400 MG TABLET (FP) PO PRN (14:50)
[2023-08-14] MEDS: hydrOXYzine PAMOATE 25 MG CAPSULE (FP) PO PRN (18:49)
[2023-08-14] MEDS: PRENATAL VITAMINS W/ FOLIC ACID TABLET (FP) PO SCH (18:53)
[2023-08-14] MEDS: MELATONIN 5 MG TABLETS PO SCH (22:35)
[2023-08-14] MEDS: THIAMINE 100 MG TABLET PO SCH (22:35)
[2023-08-14] MEDS: IBUPROFEN 600 MG TABLET (FP) PO PRN (22:37)
[2023-08-14] MEDS: MAG HYDROX/AL HYDROX/SIMETH 30 ML UNIT-DOSE CUP PO PRN (22:38)
[2023-08-15] MEDS ORDERED: ALBUTEROL SO4 HFA INHALER IH ONE (08:35)
[2023-08-15] MEDS: LOSARTAN POTASSIUM 50 MG TABLET PO SCH (10:19)
[2023-08-15] MEDS: PANTOPRAZOLE 20 MG TABLET PO SCH (10:19)
[2023-08-15] MEDS: ASPIRIN COATED 81 MG TABLET.EC PO SCH (10:19)
[2023-08-15] MEDS: FLUTICASONE PROP 0.05% 16 GM NASAL SPRAY NS SCH (11:00)
[2023-08-15] MEDS: ABACAVIR/DOLUTEGRAVIR/LAMIVUDI (TRIUMEQ) TABLET PO SCH (11:00)
[2023-08-15 11:57] LABS: CHLORIDE 107 mmol/L (98-107); POTASSIUM 4.3 mmol/L (3.5-5.1); SODIUM 139 mmol/L (136-145)
[2023-08-15 12:00] LABS: HEMATOCRIT 44.7 % (32.4-45.2); HEMOGLOBIN 14.5 GM/dL (10.7-15.3); MCHC 32.5 g/dl (32.0-36.0); MEAN CELL VOLUME 92.5 fl (80-96); MEAN PLT VOLUME 9.5 fl (7.5-11.1); PLATELET COUNT 181 10^3/uL (134-434); RBC 4.83 M/mm3 (3.60-5.2); RDW 13.5 % (11.6-15.6); WHITE BLOOD COUNT 5.2 K/mm3 (4.0-10.0)
[2023-08-15 12:01] LABS: ALBUMIN 3.7 g/dl (3.4-5.0); ANION GAP 3 mmol/L (4-13); BLOOD UREA NITROGEN 32.1 mg/dL (7-18); CO2 29 mmol/L (21-32); GLUCOSE,RANDOM 80 mg/dL (74-106)
[2023-08-15 12:03] LABS: CALCIUM 9.5 mg/dL (8.5-10.1)
[2023-08-15 12:04] LABS: CREATININE 1.2 mg/dL (0.55-1.3); SGOT/AST 39 U/L (15-37); SGPT/ALT 40 U/L (13-61)
[2023-08-15 12:06] LABS: BILIRUBIN,TOTAL 0.3 mg/dL (0.2-1); TOT PROT 7.7 g/dl (6.4-8.2)
[2023-08-15 12:07] LABS: ALK PHOS 135 U/L (45-117)
[2023-08-15 12:25] LABS: SYPHILIS W/ RPR CONF NON-REACTIVE (NONREACTIVE)
[2023-08-16] MEDS: MELATONIN 5 MG TABLETS PO ONE (01:21)
[2023-08-16] MEDS: NICOTINE POLACRILEX 2 MG GUM BUC PRN (10:38)
[2023-08-16] MEDS: ALBUTEROL SO4 HFA INHALER IH SCH (16:56)
[2023-08-16] MEDS: traZODone HCL 50 MG TABLET (FP) PO PRN (21:53)
[2023-08-16] MEDS: ACETAMINOPHEN 325 MG TABLET (FP) PO PRN (21:58)
[2023-08-16] MEDS: BENZOCAINE/MENTHOL (CHLORASEPTIC ) LOZENGE MM PRN (22:00)
[2023-08-17] MEDS: LOPERAMIDE HCL 2 MG CAPSULE PO PRN (06:49)
[2023-08-17] MEDS ORDERED: SIMETHICONE 80 MG TAB.CHEW (FP) PO PRN (10:59)
[2023-08-17] MEDS: METHYL SALICYLATE/MENTHOL OINT 30 GM TUBE TP SCH (21:57)
[2023-08-18] MEDS: P-EPHED 60MG/TRIPROLIDI 2.5MG TABLET PO PRN (02:21)
[2023-08-18] MEDS ORDERED: ALBUTEROL SO4 HFA INHALER IH PRN (02:40)
[2023-08-18 03:07] VITALS: RESP 18
[2023-08-18] MEDS ORDERED: LIDOCAINE 4% PATCH TP SCH (10:00)
[2023-08-18 12:31] LABS: INR 1.1 (0.83-1.09); PROTHROMBIN TIME (PATIENT) 12.7 SEC (9.7-13.0)
[2023-08-18] MEDS: LIDOCAINE 4% PATCH TP PRN (12:40)
[2023-08-18 12:51] LABS: MAGNESIUM 1.9 mg/dL (1.8-2.4)
[2023-08-18 12:54] LABS: PHOSPHOROUS 3.8 mg/dL (2.5-4.9)
[2023-08-18] MEDS ORDERED: RIFAXIMIN 550 MG TABLET PO SCH (13:30)
[2023-08-18] MEDS: RIFAXIMIN 550 MG TABLET PO SCH (14:14)
[2023-08-18] MEDS: LIDOCAINE PATCH REMOVAL MC SCH (22:30)
[2023-08-18] MEDS: METHYL SALICYLATE/MENTHOL OINT 30 GM TUBE TP PRN (22:33)
[2023-08-19 05:50] VITALS: TEMP 97.7
[2023-08-19 09:49] VITALS: BP 147/88; PULSE 73
[2023-08-19] MEDS: CHOLECALCIFEROL (VIT D3) 400 UNIT (10 MCG) TABLET PO SCH (10:17)
[2023-08-19] MEDS ORDERED: FLUTICASONE PROP 0.05% 16 GM NASAL SPRAY NS PRN (12:47)
[2023-08-19] MEDS: CARBAMIDE PEROXIDE 6.5% OTIC 15 ML BOTTLE AD SCH (22:20)
== END 2023-08-19 22:10 | disposition left against medical advice (07) | DRG 770 ==
LOC: YASAS 11:42 → Y3NR 18:24 → Y5N 08-15 13:51
PROVIDERS: ADMIT Allergy & Immunology; ATTEND Psychiatry & Neurology Pain Medicine
PROC: HZ42ZZZ Group Counseling for Substance Abuse Treatment, Cognitive-Behavioral (ICD-10-PCS; principal; 2023-08-14)
DX: F10.20 Alcohol dependence, uncomplicated (principal); F14.20 Cocaine dependence, uncomplicated; F17.210 Nicotine dependence, cigarettes, uncomplicated; F19.282 Other psychoactive substance dependence with psychoactive substance-induced sleep disorder; B20 Human immunodeficiency virus [HIV] disease; E72.20 Disorder of urea cycle metabolism, unspecified; I10 Essential (primary) hypertension; I42.2 Other hypertrophic cardiomyopathy; K74.60 Unspecified cirrhosis of liver; E55.9 Vitamin D deficiency, unspecified; R60.0 Localized edema; R00.1 Bradycardia, unspecified; Z86.19 Personal history of other infectious and parasitic diseases
CPT/HCPCS: 36415; 80053; 80307; 82140; 82306; 83735; 84100; 85027; 85610; 86780; 86803; 87522; 87811; 93005; 93010